=== PATIENT | female | born 1940 | race Caucasian/White ===

== ENCOUNTER → 2019-08-30 00:01 | Outpatient (RCR) | payer MEDICARE, SELFPAY | LOC: ONCMED 08-01 12:25 | PROVIDERS: Family Provider Physician Assistant; Visit Provider Internal Medicine Hematology & Oncology | DX: Z51.12 Encounter for antineoplastic immunotherapy (principal); Z51.11 Encounter for antineoplastic chemotherapy; C50.411 Malignant neoplasm of upper-outer quadrant of right female breast; E86.0 Dehydration; Z17.1 Estrogen receptor negative status [ER-]; Z79.899 Other long term (current) drug therapy; Z79.52 Long term (current) use of systemic steroids | CPT/HCPCS: 36415 ×3; 80053 ×5; 85025 ×5; 93306; 96367 ×4; 96413 ×4; 96417 ×4; 99214 ×4; J1100 ×4; J1642 ×4; J2469 ×4; J3490 ×4; J7030 ×4; J7040 ×4; J7050 ×9; J9045 ×4; J9267 ×4; J9306 ×2; J9355 ×2 ==

== ENCOUNTER 2019-09-29 05:35 | Outpatient (RCR) | payer MEDICARE, SELFPAY ==
[2019-09-01] MEDS: acetaminophen 325 mg Tablet 650 MG PO (09:21)
[2019-09-01] MEDS: diphenoxylate/atropine Tablet PO (10:26)
[2019-09-01] MEDS: palonosetron 0.25 mg/5 mL SDV IV (10:55)
--- NOTE | 2019-09-01 16:49 | ONC FU_ITS ---
[facility] Patient Note Patient: Odalys Arreaga Unit #: [id number]: 1940 Dictated By: Yoshi DianaDate of Visit: Sep 01, 2019 Onc MED Follow-Up/Prog Note Chief Complaint: Right breast cancer History of Present Illness: Mrs. Arreaga is a 79 -year-old female with 3-4 month history of progressive right breast mass. She underwent mammogram on 04/28/2019 which showed scattered fibroglandular densities bilaterally, larger right dense breast mass measuring 3.9 x 4.5 x 6.6 cm with associated fine pleomorphic calcification. This extended to the nearby skin surface upper outer right breast. Associated with skin thickening. Several nodular densities in the left breast along the posterior nipple line near 12:00 position. She underwent ultrasound-guided needle biopsy of right breast mass. The final pathology report shows infiltrating ductal carcinoma, grade 3, solid and cribriform growth pattern; ER/WV negative, HER-2/dunia +3+, Ki-67 57% unfavorable. And left breast biopsy showed fibroadenoma. Ms Arreaga denies any history of hormone intake. Patient has no family history of breast cancer. Menarche at age 17 and first child at age 27. CT PET scan done on 06/23/2019 showed marked increase of metabolic activity in the right breast mass with evidence of necrotic center and possible skin involvement; No evidence of axillary lymphadenopathy or distant metastatic disease. Echocardiogram done on 06/16/2019 showed ejection fraction 60-65%. Ms Arreaga was offered treatment with neoadjuvant chemotherapy per Dr Husain. She started on systemic chemotherapy with weekly carboplatin/Taxol and 3 weekly Herceptin/perjeta on 07/03/2019. She has tolerated it well thus far. Ms. Arreaga is here today for follow-up. This is cycle 3-day 8. She did have Perjeta Herceptin carboplatin and Taxol last week. She states overall she is doing well. However she has had significant diarrhea. She states she was up all night with the diarrhea . She states is been so numerous she could not count them. She states it was bad . She is not anything [id number] to stop the diarrhea. She states is worse this around than before. She denies any nausea or vomiting. She states her appetite is good. Energy is fair. She denies any shortness of breath orthopnea. She denies any lower extremity edema. She has had no neuropathy. She denies any constipation. She denies mouth sores, sore throat or difficulty swallowing. Other than the diarrhea she states she has not had any other concerns. Her ECOG is 2. 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 Family History: Ms. Arreaga's mother at age 76: congestive heart failure. Ms. Arreaga's father at age 71: type II diabetes. Ms. Arreaga's maternal grandmother at age 44: breast cancer. Social History: Ms. Arreaga is and she is retired. Ms. Arreaga has never smoked. She has no history of drinking. Ms. Arreaga reports the following support systems: lives with spouse, significant other, family, or friends, lives in own house, supportive family/friends willing to assist with needs, and adequate transportation available for expected visits. Her diet consists of regular meals. She indicates her activity level as: occasional exercise. Review Of Symptoms: Constitutional Denies fevers, chills, night sweats, excessive fatigue or weight loss. Allergic/Immunologic No reactions. Eyes Denies significant visual changes. No diplopia. No amaurosis. ENMT Denies changes in hearing, sore throat, mouth sores, difficulty or changes in swallowing ability, and/or sinus drainage. Endocrine No diabetes, thyroid disease or hormone replacement. Denies hot flashes or night sweats. Hematologic/Lymphatic Denies easy bruising or bleeding. The patient denies any tender or palpable lymph nodes. Respiratory Denies dyspnea on exertion, chest pain, cough or hemoptysis. Denies orthopnea. Cardiovascular Denies anginal chest pain, palpitations or orthopnea. Gastrointestinal Denies nausea, vomiting, GI bleeding, or constipation. Denies change in bowel habits and/or stool color, no heartburn or early satiety. Diarrhea as above. Genitourinary (F) No hematuria, hesitancy, incontinence, vaginal bleeding, discharge or other problems with urination. Musculoskeletal Denies joint pain, swelling or redness. No decreased range of motion. Integumentary Denies chronic rashes, inflammation, ulcerations or skin changes. Neurologic Denies headache, blurred vision, and no areas of focal weakness or numbness. Normal gait. No sensory problems. Psychiatric Denies insomnia, depression, evelia or mood swings. Vital Signs: Performed on Sep 01, 2019 08:16 Height - 60.00 in Weight - 139.0 lbs (LOW) BSA - 1.60 sq.m BMI - 27.15 Temperature - 97.3 F (LOW) Pulse - 85 /min Respiration - 20 /min BP - 149/80 mm(hg) (HIGH) O2 Sat - 98 % Pain - 0,2 - Ambulatory/capable of all self-care, unable to perform any work activities. Up and about more than 50% of waking hours. (ECOG) Physical Examination: Constitutional Alert, oriented, no acute distress. Skin pink, warm and dry. Head Normocephalic; atraumatic. Eyes Conjunctivae and sclerae are clear and without icterus. Pupils are reactive and equal. ENMT No oral exudates, ulcers, masses, thrush or mucositis. Oropharynx clear. Tongue normal. Neck Supple without masses or thyromegaly. No jugular venous distension. Hematologic/Lymphatic No petechiae or purpura. No tender or palpable lymph nodes in the cervical or supraclavicular areas. Respiratory Lungs are clear to auscultation without rhonchi or wheezing. Cardiovascular Regular rate and rhythm of heart without murmurs,clicks, gallops or rubs. Chest left subclavian venous access device site unremarkable. Abdomen Non-tender, non-distended, no masses or ascites. Good bowel sounds noted in all quads. No guarding or rebound tenderness. No pulsatile masses. Back/Spine Non-tender to palpation. Extremities No visible deformities, no cyanosis, clubbing or edema. Musculoskeletal No tenderness or swelling, normal range of motion without obvious weakness. Integumentary No rashes or lesions. Neurologic No sensory or motor deficits, normal cerebellar function, normal gait. Psychiatric Alert and oriented times three. Coherent speech. Verbalizes understanding of our discussions today. Laboratory:Test performed on Aug 30, 2019 08:18 Sodium 139 mmol/L Potassium 4.3 mmol/L Chloride 106 mmol/L CO2 23 mmol/L Anion Gap 14.3 BUN 16 mg/dL Creatinine 0.8 mg/dL Cr Clearance (Est) 55.3700 mL/min Glucose 121 mg/dl Calcium 9.3 mg/dL Protein, Total 6.1 g/dL Albumin 4.4 g/dL Globulin 1.7 gm/dL Bilirubin, Total 0.5 mg/dL ALT (SGPT) 29 U/L AST (SGOT) 26 U/L Alkaline Phosphatase 106 U/L WBC 5.4 10 3/uL RBC 3.90 10 6/uL HGB 11.4 g/dL HCT 34.5 % MCV 88.5 fl MCH 29.2 pg MCHC 33.0 g/dl RDW 13.8 % Platelet Count 235 10 3/cmm MPV 9.5 fl Neutrophils 3.8 10 3/uL Lymphocytes 1.3 10 3/uL Monocytes 0.2 10 3/uL Eosinophils 0.0 10 3/uL Basophils 0.0 10 3/uL Neutrophil % 70.1 % Lymphocyte % 24.1 % Monocyte % 4.5 % Eosinophil % 0.7 % Basophils % 0.4 % Test performed on Jul 12, 2019 08:25 CBC Slide Review SLIDE REVIEW PERFORM SLIDE REVIEW AGREES WITH AUTOMATED RESULTS ST Test performed on Jun 27, 2019 15:25 CA 15-3 7.6 U/mL CA 27.29 14.1 U/mL Impression: ER/[place] negative HER-2/dunia positive, infiltrating adenocarcinoma of the right breast per ultrasound-guided biopsy done on 05/23/2019 Mammogram done on 04/28/2019 showed 3.9 x 4.5 x 6.6 cm right breast mass Which showed ER/WV negative, HER-2/dunia +3+, Ki-67 57% unfavorable CT PET scan done on 06/23/2019 showed intense uptake in right breast with evidence of central necrosis and skin involvement but no right axillary lymphadenopathy or distant metastatic disease. Echocardiogram done on 06/16/2019 showed ejection fraction between 60-65%.Clinical stage IIIB, Tb (skin involvement), N0, M0, ER/[place] negative HER-2/dunia positive Left breast biopsy showed fibroadenoma Started on systemic therapy with weekly carboplatin/Taxol and 3 weekly Herceptin/perjeta on 07/12/2019. She presents today for cycle 3 day 8 Carboplatin/paclitaxel. She has had significant diarrhea since her last dose of Herceptin/Perjeta. She has not tried any OTC products. Plan: 1. Proceed with cycle 3-day 8 carboplatin paclitaxel. She is not due for Herceptin Perjeta for another 2 weeks. 2. Steroid compliance confirmed. 3. Imodium 2 tablets with next diarrhea and then 1 as needed after that. She has not tried any [id number] products at all. There are prn orders to have her use Imodium here in the office today if she has any diarrhea. 4. Labs from 08/30/2019 were reviewed in detail and discussed with Ms. Arreaga and a copy was given to her. WBC 5.4, hemoglobin 11.4, platelets are 35,000, ANC is 3800. Potassium 4.3 creatinine is 0.8 LFTs are normal. 5. She has an echocardiogram from 08/30/2019 which is pending. She is having no symptoms of CHF. She is not due for Herceptin Perjeta for another 2 weeks. 6. We will plan to see her back in 1 week with CBC CMP possibly the day before. 7. Ms. Arreaga was instructed to contact us in the interim should questions or problems arise. She is advised to contact us at the Imodium is not controlling her diarrhea. Signed By: Yoshi Diana-, AODENISSE Husain MD <<Signature on File>>
[2019-09-07 11:18] LABS: Basophils % 0.4 %; Eosinophils % 0.6 %; Hematocrit 32.7 % (37.0-47.0); Lymphocytes # 1.7 10^3/uL (0.8-4.8); Lymphocytes % 32.6 %; Mean Corpuscular HGB Conc 33.6 g/dL (30.0-36.0); Mean Corpuscular Hemoglobin 29.5 pg (28.0-34.0); Mean Corpuscular Volume 87.7 fL (81-99); Mean Platelet Volume 9.7 fL (7.4-10.4); Monocytes # 0.4 10^3/uL (0.2-0.9); Monocytes % 7.2 %; Neutrophils # 3.1 10^3/uL (1.8-7.7); Neutrophils % 58.6 %; Nucleated Red Blood Cells % 0 %; Platelet Count 189 10^3/cmm (130-400); Red Blood Count 3.73 10^6/uL (4.1-5.3); Red Cell Distribution Width 14.4 % (12.1-15.1); White Blood Count 5.3 10^3/uL (4.0-10.0)
[2019-09-07 11:23] LABS: Alanine Aminotransferase 29 U/L (0-33); Albumin Level 3.7 g/dL (3.5-5.2); Alkaline Phosphatase 116 IU/L (35-105); Anion Gap 13.5 (5-19); Aspartate Amino Transferase 26 U/L (0-32); Blood Urea Nitrogen 12 mg/dL (8-23); Calcium 9.5 mg/Dl (8.8-10.2); Carbon Dioxide 27 mmol/L (22-29); Chloride 104 mmol/L (98-107); Globulin 2.6 g/dL (1.3-4.6); Glucose 150 mg/dL (74-106); Potassium 3.5 mmol/L (3.5-5.1); Sodium 141 mmol/L (136-145); Total Bilirubin 0.4 mg/dL (0.15-1.2); Total Protein 6.3 g/dL (6.6-8.7)
--- NOTE | 2019-09-08 09:38 | ONC FU_ITS ---
[facility] Patient Note Patient: Odalys Arreaga Unit #: [id number]: 1940 Dictated By: Yoshi DianaDate of Visit: Sep 08, 2019 Onc MED Follow-Up/Prog Note Chief Complaint: Right breast cancer History of Present Illness: Mrs. Arreaga is a 79 -year-old female with 3-4 month history of progressive right breast mass. She underwent mammogram on 04/28/2019 which showed scattered fibroglandular densities bilaterally, larger right dense breast mass measuring 3.9 x 4.5 x 6.6 cm with associated fine pleomorphic calcification. This extended to the nearby skin surface upper outer right breast. Associated with skin thickening. Several nodular densities in the left breast along the posterior nipple line near 12:00 position. She underwent ultrasound-guided needle biopsy of right breast mass. The final pathology report shows infiltrating ductal carcinoma, grade 3, solid and cribriform growth pattern; ER/[place] negative, HER-2/dunia +3+, Ki-67 57% unfavorable. And left breast biopsy showed fibroadenoma. Ms Arreaga denies any history of hormone intake. Patient has no family history of breast cancer. Menarche at age 17 and first child at age 27. CT PET scan done on 06/23/2019 showed marked increase of metabolic activity in the right breast mass with evidence of necrotic center and possible skin involvement; No evidence of axillary lymphadenopathy or distant metastatic disease. Echocardiogram done on 06/16/2019 showed ejection fraction 60-65%. Ms Arreaga was offered treatment with neoadjuvant chemotherapy per Dr Husain. She started on systemic chemotherapy with weekly carboplatin/Taxol and 3 weekly Herceptin/perjeta on 07/03/2019. She has tolerated it well thus far. Ms. Arreaga is here today for follow-up. This is cycle 3- 15. She states her diarrhea has resolved. She has had 2 random falls since her visit last week. Left first fall was on Thursday and one was just yesterday. She states that she just had sudden onset weakness and just fell-. She denies any leg weakness prior to that but since the fall she has noticed that she is weaker in general-especially in her legs. She denies peripheral neuropathy. She is eating good and drinking good. She has had some intermittent headaches but thought that not because her blood pressure has been elevated off and on. She denies any vision changes. She has had no nausea. She denies any urinary symptoms. She said no lower extremity edema or shortness of breath. She denies any cough. She had no fever or chills or any signs of infection for at least the last 72 hours. Denies any pain currently. Her ECOG is 2. 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 Family History: Ms. Arreaga's mother at age 76: congestive heart failure. Ms. Arreaga's father at age 71: type II diabetes. Ms. Arreaga's maternal grandmother at age 44: breast cancer. Social History: Ms. Arreaga is and she is retired. Ms. Arreaga has never smoked. She has no history of drinking. Ms. Arreaga reports the following support systems: lives with spouse, significant other, family, or friends, lives in own house, supportive family/friends willing to assist with needs, and adequate transportation available for expected visits. Her diet consists of regular meals. She indicates her activity level as: occasional exercise. Review Of Symptoms: Constitutional Denies fevers, chills, night sweats, excessive fatigue or weight loss. He states she has fallen twice since she states she has no warning she does falls because she is weak. However she has had no apparent injury. Allergic/Immunologic No reactions. Eyes Denies significant visual changes. No diplopia. No amaurosis. ENMT Denies changes in hearing, sore throat, mouth sores, difficulty or changes in swallowing ability, and/or sinus drainage. Hematologic/Lymphatic Denies easy bruising or bleeding. The patient denies any tender or palpable lymph nodes. Respiratory Denies dyspnea on exertion, chest pain, cough or hemoptysis. Denies orthopnea. Cardiovascular Denies anginal chest pain, palpitations or orthopnea. Gastrointestinal Denies nausea, vomiting, GI bleeding, or constipation. Denies change in bowel habits and/or stool color, no heartburn or early satiety. Diarrhea is resolved at present. Genitourinary (F) No hematuria, hesitancy, incontinence, vaginal bleeding, discharge or other problems with urination. Musculoskeletal Denies joint pain, swelling or redness. No decreased range of motion. Integumentary Denies chronic rashes, inflammation, ulcerations or skin changes. Neurologic Denies blurred vision, and numbness. utilizing wheelchair today due to weakness. Psychiatric Denies insomnia, depression, evelia or mood swings. Vital Signs: Performed on Sep 08, 2019 08:52 Height - 60.00 in Weight - lbs Temperature - 97.3 F (LOW) Pulse - 71 /min Respiration - 22 /min BP - 185/68 mm(hg) (HIGH) O2 Sat - 98 % Pain - 0,2 - Ambulatory/capable of all self-care, unable to perform any work activities. Up and about more than 50% of waking hours. (ECOG) Physical Examination: Constitutional Alert, oriented, no acute distress. Skin pink, warm and dry. Head Normocephalic; atraumatic. Eyes Conjunctivae and sclerae are clear and without icterus. Pupils are reactive and equal. Neck Supple without masses or thyromegaly. No jugular venous distension. Hematologic/Lymphatic No petechiae or purpura. No tender or palpable lymph nodes in the cervical or supraclavicular areas. Respiratory Lungs are clear to auscultation without rhonchi or wheezing. Cardiovascular Regular rate and rhythm of heart without murmurs,clicks, gallops or rubs. Chest left subclavian venous access device site unremarkable. Abdomen Non-tender, non-distended, no masses or ascites. Good bowel sounds noted in all quads. No guarding or rebound tenderness. No pulsatile masses. Back/Spine Non-tender to palpation. Extremities No visible deformities, no cyanosis, clubbing or edema. Musculoskeletal No tenderness or swelling, normal range of motion with mild weakness in both legs. Integumentary No rashes or lesions. Psychiatric Alert and oriented times three. Coherent speech. Verbalizes understanding of our discussions today. Laboratory:Test performed on Sep 07, 2019 10:15 Glucose 150 mg/dL BUN 12 mg/dL Creatinine 0.8 mg/dL Cr Clearance (Est) 55.37 mL/min Sodium 141 mmol/L Potassium 3.5 mmol/L Chloride 104 mmol/L CO2 27 mmol/L Calcium 9.5 mg/dL Protein, Total 63 g/dL Albumin 3.7 g/dL Globulin 2.6 g/dL Bilirubin, Total 0.4 mg/dL Alkaline Phosphatase 116 IU/L AST (SGOT) 26 IU/L ALT (SGPT) 29 IU/L WBC 5.3 10^3/uL RBC 3.73 10^6/uL HGB 11.0 g/dL HCT 32.7 % MCV 87.7 fl MCH 29.5 pg MCHC 33.6 g/dL RDW 14.4 % Platelet Count 189 10^3/uL MPV 9.7 fl Neutrophils 3.1 10 3/uL Neutrophil % 58.6 % Lymphocyte % 32.6 % Monocyte % 0.4 % Basophils % 0.0 % Test performed on Jun 27, 2019 15:25 CA 15-3 7.6 U/mL CA 27.29 14.1 U/mL Impression: ER/TN negative HER-2/dunia positive, infiltrating adenocarcinoma of the right breast per ultrasound-guided biopsy done on 05/23/2019 Mammogram done on 04/28/2019 showed 3.9 x 4.5 x 6.6 cm right breast mass Which showed ER/TN negative, HER-2/dunia +3+, Ki-67 57% unfavorable CT PET scan done on 06/23/2019 showed intense uptake in right breast with evidence of central necrosis and skin involvement but no right axillary lymphadenopathy or distant metastatic disease. Echocardiogram done on 06/16/2019 showed ejection fraction between 60-65%.Clinical stage IIIB, Tb (skin involvement), N0, M0, ER/TN negative HER-2/dunia positive Left breast biopsy showed fibroadenoma Started on systemic therapy with weekly carboplatin/Taxol and 3 weekly Herceptin/perjeta on 07/12/2019. She presents today for cycle 3 day 8 Carboplatin/paclitaxel. She has had significant diarrhea since her last dose of Herceptin/Perjeta. She has not tried any OTC products. Ms. Arreaga presents today after having 2 random falls. She states she did not have any warning like dizziness or leg weakness prior to the falls but had sudden onset weakness and just fell. She had no apparent injury. But she states she feels weak overall. She is denying neuropathy states she is just weak. Plan: 1. We will hold cycle 3-day 15 carboplatin paclitaxel today due to recent falls and overall weakness. She will be due for the Herceptin Perjeta portion of this regimen next week. 2. Steroid compliance confirmed. 3. Reviewed instructions for Imodium 2 tablets with next diarrhea and then 1 as needed after that. Diarrhea is currently resolved. Requested an MRI of the head with and without contrast for evaluation of the sudden onset falls. She does states she is having some headaches off and on to she denies any vision changes and states her appetite is good but had no explanation for sudden onset weakness resulting in her falls. 4. Also will start lisinopril 5 mg 1 daily for hypertension. Her blood pressure is 185/68 today we will just monitor her closely. She has been on antihypertensive in the past and states she tolerated them well. I have advised her to stop the lisinopril that makes her feel any weaker or she has any other side effects from it. 5. Labs from September 07, 2019 reviewed in detail and discussed with Ms. Arreaga and a copy was given to her. WBC 5.3 hemoglobin 11 platelets 1 89,000 neutrophil count is 3100 potassium 3.5 glucose is 150 and LFTs are normal. 6. We will plan to see her back in 1 week with CBC CMP the day before her chemo is scheduled. 7. Ms. Arreaga was instructed to contact us in the interim should questions or problems arise. Signed By: Yoshi Diana-, AODENISSE Husain MD <<Signature on File>>
[2019-09-14 14:46] LABS: Basophils % 0.1 %; Eosinophils % 0.1 %; Hematocrit 34.5 % (37.0-47.0); Hemoglobin 11.2 g/dL (11.5-15.3); Lymphocytes # 0.6 10^3/uL (0.8-4.8); Lymphocytes % 7.5 %; Mean Corpuscular HGB Conc 32.5 g/dL (30.0-36.0); Mean Corpuscular Hemoglobin 30.3 pg (28.0-34.0); Mean Corpuscular Volume 93.2 fL (81-99); Mean Platelet Volume 9.7 fL (7.4-10.4); Monocytes # 0.1 10^3/uL (0.2-0.9); Monocytes % 0.8 %; Neutrophils # 7.6 10^3/uL (1.8-7.7); Neutrophils % 91.1 %; Nucleated Red Blood Cells % 0 %; Platelet Count 221 10^3/cmm (130-400); Red Cell Distribution Width 14.9 % (12.1-15.1); White Blood Count 8.4 10^3/uL (4.0-10.0)
[2019-09-14 15:11] LABS: Alanine Aminotransferase 27 U/L (0-33); Albumin Level 3.9 g/dL (3.5-5.2); Alkaline Phosphatase 134 IU/L (35-105); Anion Gap 17.3 (5-19); Aspartate Amino Transferase 24 U/L (0-32); Blood Urea Nitrogen 10 mg/dL (8-23); Calcium 9.1 mg/Dl (8.8-10.2); Carbon Dioxide 25 mmol/L (22-29); Chloride 101 mmol/L (98-107); Glucose 330 mg/dL (74-106); Potassium 4.3 mmol/L (3.5-5.1); Sodium 139 mmol/L (136-145); Total Bilirubin 0.4 mg/dL (0.15-1.2); Total Protein 6.9 g/dL (6.6-8.7)
--- NOTE | 2019-09-15 08:10 | MR_ITS ---
WS: [id number] MRI BRAIN WITH AND WITHOUT CONTRAST HISTORY: Malignant NEOPLASM OF BREAST COMPARISON: None available. TECHNIQUE: Multiplanar imaging performed through the brain with Prohance 13 ml's IV. No acute infarcts are seen. Cramer-white matter differentiation is well preserved. Extensive, patchy an d confluent periventricular white matter signal abnormality. No prior infarct. Small amount of increa sed signal within the jun bilaterally, RIGHT greater than LEFT. Mild bilateral cerebral atrophy. No susceptibility artifacts or prior lacunar infarcts. Ventricles and extra-axial spaces are normal. Clivus and pituitary gland are normal. Postcontrast images are negative for masses or vascular malformations. Dural venous sinuses are normal. Paranasal sinuses: Well aerated with no significant disease. Mastoid air cells: Normal. Calvarium and scalp: Normal. MR/MR head wo/w con [id number] IMPRESSION: 1. No evidence for metastatic disease to the brain. No enhancing masses. 2. Severe chronic microvascular ischemic disease and mild atrophy. 3. No acute infarct.
[2019-09-15] MEDS: sodium chloride 0.9% 250 ML 75 ML IV (10:53)
[2019-09-15] MEDS: acetaminophen 325 mg Tablet 650 MG PO (10:53)
--- NOTE | 2019-09-15 11:36 | ONC FU_ITS ---
Dr. Husain follow up note Patient: Odalys Arreaga Unit #: [id number]: 1940 Dicatated By: Andrés Husain M.D.Date of Visit:Sep 15, 2019 Onc Med Follow-up/Prog Note History of Present Illness: Mrs. Arreaga is a 79 -year-old female with 3-4 month history of progressive right breast mass. She underwent mammogram on 04/28/2019 which showed scattered fibroglandular densities bilaterally, larger right dense breast mass measuring 3.9 x 4.5 x 6.6 cm with associated fine pleomorphic calcification. This extended to the nearby skin surface upper outer right breast. Associated with skin thickening. Several nodular densities in the left breast along the posterior nipple line near 12:00 position. She underwent ultrasound-guided needle biopsy of right breast mass. The final pathology report shows infiltrating ductal carcinoma, grade 3, solid and cribriform growth pattern; ER/OR negative, HER-2/dunia +3+, Ki-67 57% unfavorable. And left breast biopsy showed fibroadenoma. Ms Arreaga denies any history of hormone intake. Patient has no family history of breast cancer. Menarche at age 17 and first child at age 27. CT PET scan done on 06/23/2019 showed marked increase of metabolic activity in the right breast mass with evidence of necrotic center and possible skin involvement; No evidence of axillary lymphadenopathy or distant metastatic disease. Echocardiogram done on 06/16/2019 showed ejection fraction 60-65%. Ms Arreaga was offered treatment with neoadjuvant chemotherapy She started on systemic chemotherapy with weekly carboplatin/Taxol and 3 weekly Herceptin/perjeta on 07/03/2019. She has tolerated it well thus far. h/o random falls , states that she just had sudden onset weakness and just fell-. She denies any leg weakness prior to that but since the fall she has noticed that she is weaker in general-especially in her legs. She denies peripheral neuropathy. Underwent MRI scan of brain to rule out brain metastases on 09/15/2019, which showed no evidence of metastatic disease to the brain no enhancing masses. Severe chronic microvascular ischemic disease. No acute changes .Follow-up echocardiogram done on 08/30/2019 showed normal left ventricle function ejection fraction 65-70% Came for follow-up, denies any specific complaint, patient said she feeling much better since she started on antihypertensive medicine. No more dizziness. No more fall, diarrhea has resolved, overall feeling much better and more energetic. She is also noncompliant with her diabetic diet. Patient said she used be on oral hypoglycemic but that has been discontinued long time back. And now she is having episode of hyperglycemia due to high-dose steroids used as premedication for chemotherapy. Medications: Aspirin Low Dose 81 (81 mg) Tablet Oral daily, Atorvastatin Calcium 20 (20 mg) Tablet Oral at bedtime, B-12 2,500 (2500 mcg) Tablet Oral daily, Centrum Silver Tablet, chewable Oral daily, Cholecalciferol 1,000 (1000 Units) Capsule Oral daily, Lisinopril 1 Tablet (of 10 mg) Oral daily, Oxybutynin Chloride 5 (5 mg) Tablet Oral b.i.d. Allergies: Penicillins Review of Systems: Review of Systems is not available for this patient. Vital Signs: Performed on Sep 15, 2019 10:11 Height - 60.00 in Weight - 144.8 lbs (HIGH) BSA - 1.63 sq.m BMI - 28.28 Temperature - 97.9 F (LOW) Pulse - 65 /min Respiration - 18 /min BP - 156/70 mm(hg) (HIGH) O2 Sat - 98 % Pain - 0 Performance Status: 1 - No physically strenuous activity, but ambulatory and able to carry out light or sedentary work (e.g. office work, light house work). (ECOG) Physical Examination: Respiratory - Lungs are clear to auscultation without rhonchi or wheezing, Cardiovascular - Regular rate and rhythm of heart, Extremities - no edema. Lab/Imaging: Test performed on Sep 14, 2019 12:00 Glucose 330 mg/dL BUN 10 mg/dL Creatinine 0.9 mg/dL Cr Clearance (Est) 49.22 mL/min Sodium 139 mmol/L Potassium 4.3 mmol/L Chloride 101 mmol/L CO2 25 mmol/L Calcium 9.1 mg/dL Protein, Total 6.9 g/dL Albumin 3.9 g/dL Globulin 3.0 g/dL Bilirubin, Total 0.4 mg/dL Alkaline Phosphatase 134 IU/L AST (SGOT) 24 IU/L ALT (SGPT) 27 IU/L WBC 8.4 10^9/L RBC 3.70 10^12/L HGB 11.2 g/dL HCT 34.5 % MCV 93.2 fl MCH 30.3 pg MCHC 32.5 g/dL RDW 14.9 % Platelet Count 221 10^9/L MPV 9.7 fL Neutrophils (Gran) 7.6 10^9/L Lymphocytes 0.6 10^9/L Monocytes 0.1 10^9/L Eosinophils 0.0 10^9/L Basophils 0.0 10^9/L Manual Lymphocytes 7.5 % Manual Monocytes 0.8 % Manual Eosinophils 0.1 % Manual Basophils 0.1 % NRBCs 0.0 /100 WBC Test performed on Sep 07, 2019 10:15 Neutrophil % 58.6 % Lymphocyte % 32.6 % Monocyte % 0.4 % Basophils % 0.0 % Test performed on Aug 30, 2019 08:18 Anion Gap 14.3 Eosinophil % 0.7 % Test performed on Jul 12, 2019 08:25 CBC Slide Review SLIDE REVIEW PERFORM SLIDE REVIEW AGREES WITH AUTOMATED RESULTS ST Test performed on Jun 27, 2019 15:25 CA 15-3 7.6 U/mL CA 27.29 14.1 U/mL Impression: ER/OR negative HER-2/dunia positive, infiltrating adenocarcinoma of the right breast per ultrasound-guided biopsy done on 05/23/2019 Mammogram done on 04/28/2019 showed 3.9 x 4.5 x 6.6 cm right breast mass Which showed ER/OR negative, HER-2/dunia +3+, Ki-67 57% unfavorable CT PET scan done on 06/23/2019 showed intense uptake in right breast with evidence of central necrosis and skin involvement but no right axillary lymphadenopathy or distant metastatic disease. Echocardiogram done on 06/16/2019 showed ejection fraction between 60-65%.Clinical stage IIIB, Tb (skin involvement), N0, M0, ER/OR negative HER-2/dunia positive Left breast biopsy showed fibroadenoma Started on systemic therapy with weekly carboplatin/Taxol and 3 weekly Herceptin/perjeta on 07/12/2019. She presents today for cycle 3 day 8 Carboplatin/paclitaxel. She has had significant diarrhea since her last dose of Herceptin/Perjeta. She has not tried any OTC products. Ms. Arreaga presents today after having 2 random falls. She states she did not have any warning like dizziness or leg weakness prior to the falls but had sudden onset weakness and just fell. She had no apparent injury. But she states she feels weak overall. She is denying neuropathy states she is just weak. Plan: Discussed with patient regarding her labs white blood count 8.4 hemoglobin 11.2 crit 34.5 platelets 222,000 CMP within normal limit except glucose 330 Clinically, patient is doing well, tolerating neoadjuvant chemotherapy with weekly carboplatin/Taxol and 3 weeks Herceptin/perjeta well but with expected side effects e.g. generalized weakness and fatigue which could be multifactorial including due to hyper glycemia. We'll proceed with the next cycle #4 of chemotherapy with weekly carboplatin/Taxol and review dose of Herceptin/perjeta. She will return to clinic in 1 week with CBC CMP if okay, for her weekly dose of carboplatin/Taxol Steroid-induced hyperglycemia. We will consider sliding scale and diabetes teaching. And patient was advised to avoid sugar day before and around chemotherapy to minimize steroid-induced hyperglycemia. Signed By: Andrés Husain M.D. <<Signature on File>>
[2019-09-22] MEDS: acetaminophen 325 mg Tablet 650 MG PO (10:05)
[2019-09-22] MEDS: sodium chloride 0.9% 250 ML IV (10:21)
[2019-09-28 17:09] LABS: Alanine Aminotransferase 21 U/L (0-33); Albumin Level 3.5 g/dL (3.5-5.2); Alkaline Phosphatase 118 IU/L (35-105); Anion Gap 18.3 (5-19); Aspartate Amino Transferase 24 U/L (0-32); Carbon Dioxide 24 mmol/L (22-29); Chloride 102 mmol/L (98-107); Globulin 3.4 g/dL (1.3-4.6); Glucose 145 mg/dL (74-106); Potassium 4.3 mmol/L (3.5-5.1); Sodium 140 mmol/L (136-145); Total Bilirubin 0.7 mg/dL (0.15-1.2); Total Protein 6.9 g/dL (6.6-8.7)
[2019-09-28 19:34] LABS: Basophils % 0.7 %; Eosinophils # 0.1 10^3/uL (0.0-0.8); Eosinophils % 1.6 %; Hematocrit 35.3 % (37.0-47.0); Hemoglobin 11.4 g/dL (11.5-15.3); Lymphocytes % 47.1 %; Mean Corpuscular HGB Conc 32.3 g/dL (30.0-36.0); Mean Corpuscular Hemoglobin 29.6 pg (28.0-34.0); Mean Corpuscular Volume 91.7 fL (81-99); Mean Platelet Volume 10.1 fL (7.4-10.4); Monocytes # 0.3 10^3/uL (0.2-0.9); Monocytes % 7.9 %; Neutrophils # 1.8 10^3/uL (1.8-7.7); Neutrophils % 42.5 %; Nucleated Red Blood Cells % 0 %; Platelet Count 270 10^3/cmm (130-400); Red Blood Count 3.85 10^6/uL (4.1-5.3); Red Cell Distribution Width 15.1 % (12.1-15.1); White Blood Count 4.3 10^3/uL (4.0-10.0)
[2019-09-28 20:35] LABS: Blood Urea Nitrogen 13 mg/dL (8-23)
[2019-09-29] MEDS: sodium chloride 0.9% 250 ML 75 ML IV (09:50)
[2019-09-29] MEDS: acetaminophen 325 mg Tablet 650 MG PO (10:10)
== END 2019-09-30 23:59 | disposition home or self-care (01) ==
LOC: ONCMED 05:35
PROVIDERS: Nurse Practitioner; Family Provider Physician Assistant; Visit Provider Internal Medicine Hematology & Oncology
DX: Z51.12 Encounter for antineoplastic immunotherapy (principal); Z51.11 Encounter for antineoplastic chemotherapy; C50.411 Malignant neoplasm of upper-outer quadrant of right female breast; I10 Essential (primary) hypertension; Z17.1 Estrogen receptor negative status [ER-]; Z79.82 Long term (current) use of aspirin; Z91.81 History of falling
CPT/HCPCS: 36415; 70553; 80053; 85025; 96367; 96413; 96417; 99214; A4222; A9579; J1100; J1200; J2469; J3490; J7030; J7040; J7050; J9045; J9267; J9306; J9355

== ENCOUNTER 2019-10-27 05:44 | Outpatient (RCR) | payer MEDICARE, SELFPAY ==
[2019-10-05 14:02] LABS: Hematocrit 33.6 % (37.0-47.0); Hemoglobin 11.2 g/dL (11.5-15.3); Lymphocytes # 0.7 10^3/uL (0.8-4.8); Lymphocytes % 16.1 %; Mean Corpuscular HGB Conc 33.3 g/dL (30.0-36.0); Mean Corpuscular Hemoglobin 31.1 pg (28.0-34.0); Mean Corpuscular Volume 93.3 fL (81-99); Mean Platelet Volume 9.6 fL (7.4-10.4); Monocytes % 0.7 %; Neutrophils # 3.7 10^3/uL (1.8-7.7); Neutrophils % 82.5 %; Nucleated Red Blood Cells % 0 %; Platelet Count 338 10^3/cmm (130-400); Red Cell Distribution Width 15.3 % (12.1-15.1); White Blood Count 4.5 10^3/uL (4.0-10.0)
[2019-10-05 15:19] LABS: Alanine Aminotransferase 22 U/L (0-33); Albumin Level 3.8 g/dL (3.5-5.2); Alkaline Phosphatase 127 IU/L (35-105); Aspartate Amino Transferase 23 U/L (0-32); Blood Urea Nitrogen 15 mg/dL (8-23); Calcium 9.9 mg/dL (8.5-10.5); Carbon Dioxide 24 mmol/L (22-29); Chloride 100 mmol/L (98-107); Globulin 2.7 g/dL (1.3-4.6); Glucose 220 mg/dL (65-115); Sodium 138 mmol/L (136-145); Total Bilirubin 0.5 mg/dL (0.15-1.2); Total Protein 6.5 g/dL (6.6-8.7)
--- NOTE | 2019-10-12 08:44 | US_ITS ---
WS: [id number] ULTRASOUND BREAST RIGHT TECHNIQUE: Ultrasound right breast focused area of concern. CLINICAL INFORMATION: RIGHT BREAST CANCER COMPARISON: Ultrasound May 23, 2019. Ultrasound April 28, 2019. Diagnostic mammogram March FINDINGS: Ultrasound right breast at the 10:00 position 3 cm from the nipple. Again seen is the large right sofia ast mass at the 10:00 position consistent with known infiltrating ductal carcinoma. Heterogeneous right breast mass measures approximately 3.2 x 4.2 x 1.8 cm today. This compares to 5.8 x 5.4 x 6.6 cm previously. Associated internal calcifications and cystic components are again seen. Normal sized lymph nodes in the right axilla. Largest lymph node measures 1.1 x 1.3 x 0.6 cm with nor mal fatty hilum. No definite pathologic lymph nodes. US/US breast RT limited* [id number] IMPRESSION: 1. Interval decrease in size of the heterogeneous right breast mass today vivienne uring 3.2 x 4.2 x 1.8 cm compared to 5.8 x 5.4 x 6.6 cm previously 2. Right axilla is also evaluated. No pathologic lymph nodes.
[2019-10-12 09:11] LABS: Hemoglobin 10.8 g/dL (11.5-15.3); Lymphocytes # 0.5 10^3/uL (0.8-4.8); Lymphocytes % 7.4 %; Mean Corpuscular HGB Conc 32.7 g/dL (30.0-36.0); Mean Corpuscular Hemoglobin 29.7 pg (28.0-34.0); Mean Corpuscular Volume 90.7 fL (81-99); Mean Platelet Volume 8.9 fL (7.4-10.4); Monocytes # 0.1 10^3/uL (0.2-0.9); Monocytes % 0.8 %; Neutrophils % 91.3 %; Nucleated Red Blood Cells % 0 %; Platelet Count 292 10^3/cmm (130-400); Red Blood Count 3.64 10^6/uL (4.1-5.3); Red Cell Distribution Width 15.5 % (12.1-15.1); White Blood Count 6.6 10^3/uL (4.0-10.0)
[2019-10-12 09:26] LABS: Alanine Aminotransferase 18 U/L (0-33); Albumin Level 3.8 g/dL (3.5-5.2); Alkaline Phosphatase 110 IU/L (35-105); Anion Gap 16.4 (5-19); Aspartate Amino Transferase 21 U/L (0-32); Blood Urea Nitrogen 15 mg/dL (8-23); Calcium 9.6 mg/dL (8.5-10.5); Carbon Dioxide 25 mmol/L (22-29); Chloride 102 mmol/L (98-107); Glucose 200 mg/dL (65-115); Potassium 4.4 mmol/L (3.5-5.1); Sodium 139 mmol/L (136-145); Total Bilirubin 0.4 mg/dL (0.15-1.2); Total Protein 6.8 g/dL (6.6-8.7)
[2019-10-13] MEDS: acetaminophen 325 mg Tablet 650 MG PO (09:25)
[2019-10-13] MEDS: sodium chloride 0.9% 250 ML 75 ML IV (10:00)
--- NOTE | 2019-10-13 13:44 | ONC FU_ITS ---
Dr. Husain follow up note Patient: Odalys Arreaga Unit #: [id number]: 1940 Dicatated By: Andrés Husain M.D.Date of Visit:Oct 13, 2019 Onc Med Follow-up/Prog Note History of Present Illness: Mrs. Arreaga is a 79 -year-old female with 3-4 month history of progressive right breast mass. She underwent mammogram on 04/28/2019 which showed scattered fibroglandular densities bilaterally, larger right dense breast mass measuring 3.9 x 4.5 x 6.6 cm with associated fine pleomorphic calcification. This extended to the nearby skin surface upper outer right breast. Associated with skin thickening. Several nodular densities in the left breast along the posterior nipple line near 12:00 position. She underwent ultrasound-guided needle biopsy of right breast mass. The final pathology report shows infiltrating ductal carcinoma, grade 3, solid and cribriform growth pattern; ER/DC negative, HER-2/dunia +3+, Ki-67 57% unfavorable. And left breast biopsy showed fibroadenoma. Ms Arreaga denies any history of hormone intake. Patient has no family history of breast cancer. Menarche at age 17 and first child at age 27. CT PET scan done on 06/23/2019 showed marked increase of metabolic activity in the right breast mass with evidence of necrotic center and possible skin involvement; No evidence of axillary lymphadenopathy or distant metastatic disease. Echocardiogram done on 06/16/2019 showed ejection fraction 60-65%. Ms Arreaga was offered treatment with neoadjuvant chemotherapy She started on systemic chemotherapy with weekly carboplatin/Taxol and 3 weekly Herceptin/perjeta on 07/03/2019. She has tolerated it well thus far. h/o random falls , states that she just had sudden onset weakness and just fell-. She denies any leg weakness prior to that but since the fall she has noticed that she is weaker in general-especially in her legs. She denies peripheral neuropathy. Underwent MRI scan of brain to rule out brain metastases on 09/15/2019, which showed no evidence of metastatic disease to the brain no enhancing masses. Severe chronic microvascular ischemic disease. No acute changes. Follow-up right breast sonogram done on 10/12/2019, after 4 cycles of systemic therapy with carboplatin/Taxol/Herceptin/perjeta showed excellent response, now right breast mass measures 3.2 x 4.2 x 1.8 cm compared to 5.8 x 5.4 x 6.6 cm previously, normal size lymph nodes in the right axilla. Came for follow-up, denies any specific complaints except off and on heartburn indigestion . Occasionally nausea but no vomiting, more often with certain foods especially thai fries or grapefruit juice. Patient was advised not to drink grapefruit juice or spicy food. No fever or chills no nausea or vomiting, no shortness of breath no lower extremity edema no palpitation, tolerating neoadjuvant systemic therapy well otherwise Medications: Aspirin Low Dose 81 (81 mg) Tablet Oral daily, Atorvastatin Calcium 20 (20 mg) Tablet Oral at bedtime, B-12 2,500 (2500 mcg) Tablet Oral daily, Centrum Silver Tablet, chewable Oral daily, Cholecalciferol 1,000 (1000 Units) Capsule Oral daily, Lisinopril 1 Tablet (of 10 mg) Oral daily, NovoLIN R (100 Units/mL) Injection Take as Directed, Oxybutynin Chloride 5 (5 mg) Tablet Oral b.i.d. Allergies: Penicillins Review of Systems: Constitutional - Appetite is good and weight is stable. No fever, chills, hot flashes, or night sweats. Energy is fair, ENMT - No sinus congestion/drainage. No mouth sores. No sore throat or difficulty swallowing, Hematologic/Lymphatic - No abnormal bruising or bleeding, Respiratory - No shortness of breath. No cough. No pleuritic pain or hemoptysis, Cardiovascular - No angina pain. No palpitations, Gastrointestinal - No nausea or vomiting. No heartburn or acid reflux. No diarrhea or constipation. No blood in the stool or black stools, Genitourinary (F) - No dysuria or hematuria. No urinary frequency. No urgency. Positive for incontinence, Musculoskeletal - No joint or bone pain, Neurologic - No headache or dizziness. No numbness/paresthesias or other focal neurologic symptoms, Psychiatric - No anxiety or depression. No insomnia. Vital Signs: Performed on Oct 13, 2019 08:47 Height - 60.00 in Weight - 141.4 lbs (HIGH) BSA - 1.61 sq.m BMI - 27.62 Temperature - 98.3 F (LOW) Pulse - 65 /min Respiration - 18 /min BP - 147/64 mm(hg) (HIGH) O2 Sat - 97 % Pain - 0 Performance Status: 0 - Fully active, able to carry on all predisease activities without restrictions. (ECOG) Physical Examination: Respiratory - Lungs are clear to auscultation without rhonchi or wheezing, Cardiovascular - Regular rate and rhythm of heart Extremities - no edema or rash. Lab/Imaging: Test performed on Oct 12, 2019 09:06 Sodium 139 mmol/L Potassium 4.4 mmol/L Chloride 102 mmol/L CO2 25 mmol/L Anion Gap 16.4 BUN 15 mg/dL Creatinine 0.9 mg/dL Cr Clearance (Est) 49.2200 mL/min Glucose 200 mg/dL Calcium 9.6 mg/dL Protein, Total 6.8 g/dL Albumin 3.8 g/dL Globulin 3.0 g/dL Bilirubin, Total 0.4 mg/dL ALT (SGPT) 18 U/L AST (SGOT) 21 U/L Alkaline Phosphatase 110 IU/L WBC 6.6 10 3/uL RBC 3.64 10 6/uL HGB 10.8 g/dL HCT 33.0 % MCV 90.7 fL MCH 29.7 pg MCHC 32.7 g/dL RDW 15.5 % Platelet Count 292 10 3/cmm MPV 8.9 fL Neutrophils 6.0 10 3/uL Lymphocytes 0.5 10 3/uL Monocytes 0.1 10 3/uL Eosinophils 0.0 10 3/uL Basophils 0.0 10 3/uL Neutrophil % 91.3 % Lymphocyte % 7.4 % Monocyte % 0.8 % Eosinophil % 0.0 % Basophils % 0.0 % Test performed on Sep 14, 2019 12:00 Manual Lymphocytes 7.5 % Manual Monocytes 0.8 % Manual Eosinophils 0.1 % Manual Basophils 0.1 % NRBCs 0.0 /100 WBC Test performed on Jul 12, 2019 08:25 CBC Slide Review SLIDE REVIEW PERFORM SLIDE REVIEW AGREES WITH AUTOMATED RESULTS ST Test performed on Jun 27, 2019 15:25 CA 15-3 7.6 U/mL CA 27.29 14.1 U/mL Impression: ER/DC negative HER-2/dunia positive, infiltrating adenocarcinoma of the right breast per ultrasound-guided biopsy done on 05/23/2019 Mammogram done on 04/28/2019 showed 3.9 x 4.5 x 6.6 cm right breast mass Which showed ER/DC negative, HER-2/dunia +3+, Ki-67 57% unfavorable CT PET scan done on 06/23/2019 showed intense uptake in right breast with evidence of central necrosis and skin involvement but no right axillary lymphadenopathy or distant metastatic disease. Echocardiogram done on 06/16/2019 showed ejection fraction between 60-65%.Clinical stage IIIB, Tb (skin involvement), N0, M0, ER/DC negative HER-2/dunia positive Left breast biopsy showed fibroadenoma Started on systemic therapy with weekly carboplatin/Taxol and 3 weekly Herceptin/perjeta on 07/12/2019.follow-up sonogram done after 4 cycles on 10/12/2019 showed excellent response with significant reduction in right breast mass, now measure 3.2 x 4.2 x 1.8 cm compared to 5.8 x 5.4 x 6.6 cm. Plan: Discussed with patient regarding her labs white blood count 6.6 alone 10.8 crit 33 platelets 292,000 CMP within normal limits except glucose 200, sonogram of right breast, showed excellent response to neoadjuvant therapy with significant reduction in size of right breast mass Clinically, patient doing well, tolerating neoadjuvant therapy with carboplatin/Taxol/Herceptin/perjeta well but with expected side effects. We'll proceed with cycle #5 today and then she will return to clinic in 1 week for weekly dose of carboplatin/Taxol. Patient is pleased with right breast sonogram findings which showed excellent response with significant reduction in size of right breast mass and no right axillary lymph node enlargement. We'll continue with her neoadjuvant chemotherapy and completed 6 cycles, followed by right breast sonogram to assess response and then surgery,. Next Patient was advised to watch her diet and avoid sugar and carbohydrate rich diet and follow with PMD and avoid grapefruit juice and spicy food. Signed By: Andrés Husain M.D. <<Signature on File>>
[2019-10-19 13:53] LABS: Basophils % 0.3 %; Hematocrit 32.1 % (37.0-47.0); Hemoglobin 10.6 g/dL (11.5-15.3); Lymphocytes # 0.6 10^3/uL (0.8-4.8); Lymphocytes % 9.1 %; Mean Corpuscular Hemoglobin 29.7 pg (28.0-34.0); Mean Corpuscular Volume 89.9 fL (81-99); Mean Platelet Volume 9.8 fL (7.4-10.4); Monocytes % 0.4 %; Neutrophils # 6.2 10^3/uL (1.8-7.7); Neutrophils % 88.4 %; Nucleated Red Blood Cells % 0 %; Platelet Count 301 10^3/cmm (130-400); Red Blood Count 3.57 10^6/uL (4.1-5.3)
[2019-10-19 14:01] LABS: Alanine Aminotransferase 25 U/L (0-33); Albumin Level 3.5 g/dL (3.5-5.2); Alkaline Phosphatase 94 IU/L (35-105); Anion Gap 18.3 (5-19); Aspartate Amino Transferase 23 U/L (0-32); Blood Urea Nitrogen 19 mg/dL (8-23); Calcium 9.5 mg/dL (8.5-10.5); Carbon Dioxide 22 mmol/L (22-29); Chloride 104 mmol/L (98-107); Globulin 3.3 g/dL (1.3-4.6); Glucose 171 mg/dL (65-115); Potassium 4.3 mmol/L (3.5-5.1); Sodium 140 mmol/L (136-145); Total Bilirubin 0.5 mg/dL (0.15-1.2); Total Protein 6.8 g/dL (6.6-8.7)
[2019-10-19 15:13] LABS: Slide Review Slide Review Perform
--- NOTE | 2019-10-23 20:22 | ONC FU_ITS ---
[facility] Patient Note Patient: Odalys Arreaga Unit #: [id number]: 1940 Dictated By: Yoshi DianaDate of Visit: Oct 20, 2019 Onc MED Follow-Up/Prog Note Chief Complaint: Right breast cancer History of Present Illness: Mrs. Arreaga is a 79 -year-old female with 3-4 month history of progressive right breast mass. She underwent mammogram on 04/28/2019 which showed scattered fibroglandular densities bilaterally, larger right dense breast mass measuring 3.9 x 4.5 x 6.6 cm with associated fine pleomorphic calcification. This extended to the nearby skin surface upper outer right breast. Associated with skin thickening. Several nodular densities in the left breast along the posterior nipple line near 12:00 position. She underwent ultrasound-guided needle biopsy of right breast mass. The final pathology report shows infiltrating ductal carcinoma, grade 3, solid and cribriform growth pattern; ER/AL negative, HER-2/dunia +3+, Ki-67 57% unfavorable. And left breast biopsy showed fibroadenoma. Ms Arreaga denies any history of hormone intake. Patient has no family history of breast cancer. Menarche at age 17 and first child at age 27. PET/CT on 06/23/2019 showed marked increase of metabolic activity in the right breast mass with evidence of necrotic center and possible skin involvement; No evidence of axillary lymphadenopathy or distant metastatic disease. Echocardiogram done on 06/16/2019 showed ejection fraction 60-65%. Ms Arreaga was offered treatment with neoadjuvant chemotherapy She started on systemic chemotherapy with weekly carboplatin/Taxol and 3 week Herceptin/perjeta on 07/03/2019. She has tolerated it well thus far. Ms Arreaga stated she was having random falls and states that she just had sudden onset weakness and just fell-. She denies any leg weakness prior to that but since the fall she has noticed that she is weaker in general-especially in her legs. She denies peripheral neuropathy. Underwent MRI scan of brain to rule out brain metastases on 09/15/2019, which showed no evidence of metastatic disease to the brain no enhancing masses. Severe chronic microvascular ischemic disease. No acute changes. Follow-up right breast sonogram done on 10/12/2019, after 4 cycles of systemic therapy with carboplatin/Taxol/Herceptin/perjeta showed excellent response, now right breast mass measures 3.2 x 4.2 x 1.8 cm compared to 5.8 x 5.4 x 6.6 cm previously, normal size lymph nodes in the right axilla. The plan is to complete 6 cycles and re ultrasound and refer for possible surgery. She has tolerated the chemo well overall but has had diarrhea. She is not a good historian today, but states her diarrhea was better this last week, but she had diarrhea last night. She states it is resolved this morning. I am uncertain if she is using the antidiarrheal as she could. She states she is using it some, but cannot tell me how often or how many. She denies any fever or chills. She states she has not had nausea. She denies any worsening neuropathy symptoms. She denies pain. She state she feels good today. She has no new concerns. Her ECOG is 1. 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 Family History: Ms. Arreaga's mother at age 76: congestive heart failure. Ms. Arreaga's father at age 71: type II diabetes. Ms. Arreaga's maternal grandmother at age 44: breast cancer. Social History: Ms. Arreaga is and she is retired. Ms. Arreaga has never smoked. She has no history of drinking. Ms. Arreaga reports the following support systems: lives with spouse, significant other, family, or friends, lives in own house, supportive family/friends willing to assist with needs, and adequate transportation available for expected visits. Her diet consists of regular meals. She indicates her activity level as: occasional exercise. Review Of Symptoms: Constitutional Denies fevers, chills, night sweats, excessive fatigue or weight loss. He states she has fallen twice since she states she has no warning she does falls because she is weak. However she has had no apparent injury. Allergic/Immunologic No reactions. Eyes Denies significant visual changes. No diplopia. No amaurosis. ENMT Denies changes in hearing, sore throat, mouth sores, difficulty or changes in swallowing ability, and/or sinus drainage. Endocrine No diabetes, thyroid disease or hormone replacement. Denies hot flashes or night sweats. Hematologic/Lymphatic Denies easy bruising or bleeding. The patient denies any tender or palpable lymph nodes. Respiratory Denies dyspnea on exertion, chest pain, cough or hemoptysis. Denies orthopnea. Cardiovascular Denies anginal chest pain, palpitations or orthopnea. Gastrointestinal Denies nausea, vomiting, GI bleeding, or constipation. Denies change in bowel habits and/or stool color, no heartburn or early satiety. Diarrhea is resolved at present. She states she thinks it was some better after her last treatment. I am not convinced she is taking the antidiarrheals as directed, which may be why she is still having intermittent diarrhea with the chemo. She has not had any diarrhea today or for the last 3 days that she can recall. Genitourinary (F) No hematuria, hesitancy, incontinence, vaginal bleeding, discharge or other problems with urination. Musculoskeletal Denies joint pain, swelling or redness. No decreased range of motion. Integumentary Denies chronic rashes, inflammation, ulcerations or skin changes. Neurologic Denies blurred vision, and numbness. Ambulatory without any assistance. Psychiatric Denies insomnia, depression, evelia or mood swings. Vital Signs: Performed on Oct 20, 2019 12:35 Height - 60.00 in Temperature - 97 F (LOW) Pulse - 63 /min Respiration - 18 /min BP - 177/65 mm(hg) (HIGH) O2 Sat - 98 % Pain - 0 Fatigue - 0 Performed on Oct 20, 2019 08:39 Height - 60.00 in Weight - 134.8 lbs (LOW) BSA - 1.58 sq.m BMI - 26.33 Temperature - 97.9 F (LOW) Pulse - 68 /min Respiration - 14 /min BP - 144/60 mm(hg) (HIGH) O2 Sat - 100 % Pain - 0 Fatigue - 0,1 - No physically strenuous activity, but ambulatory and able to carry out light or sedentary work (e.g. office work, light house work). (ECOG) Physical Examination: Constitutional Alert, oriented, no acute distress. Skin pink, warm and dry. Head Normocephalic; atraumatic. Eyes Conjunctivae and sclerae are clear and without icterus. Pupils are reactive and equal. ENMT No oral exudates, ulcers, masses, thrush or mucositis. Oropharynx clear. Tongue normal. Neck Supple without masses or thyromegaly. No jugular venous distension. Hematologic/Lymphatic No petechiae or purpura. No tender or palpable lymph nodes in the cervical or supraclavicular areas. Respiratory Lungs are clear to auscultation without rhonchi or wheezing. Cardiovascular Regular rate and rhythm of heart without murmurs,clicks, gallops or rubs. Chest left subclavian venous access device site unremarkable. Abdomen Non-tender, non-distended, no masses or ascites. Good bowel sounds noted in all quads. No guarding or rebound tenderness. No pulsatile masses. Back/Spine Non-tender to palpation. Extremities No visible deformities, no cyanosis, clubbing or edema. Musculoskeletal No tenderness or swelling, normal range of motion with mild weakness in both legs. Integumentary No rashes or lesions. Neurologic No sensory or motor deficits, normal cerebellar function, normal gait. Psychiatric Alert and oriented times three. Coherent speech. Verbalizes understanding of our discussions today. Laboratory:Test performed on Oct 19, 2019 11:25 Sodium 140 mmol/L Potassium 4.3 mmol/L Chloride 104 mmol/L CO2 22 mmol/L Anion Gap 18.3 BUN 19 mg/dL Creatinine 0.7 mg/dL Cr Clearance (Est) 63.2800 mL/min Glucose 171 mg/dL Calcium 9.5 mg/dL Protein, Total 6.8 g/dL Albumin 3.5 g/dL Globulin 3.3 g/dL Bilirubin, Total 0.5 mg/dL ALT (SGPT) 25 U/L AST (SGOT) 23 U/L Alkaline Phosphatase 94 IU/L WBC 7.0 10 3/uL RBC 3.57 10 6/uL HGB 10.6 g/dL HCT 32.1 % MCV 89.9 fL MCH 29.7 pg MCHC 33.0 g/dL RDW 15.0 % Platelet Count 301 10 3/cmm MPV 9.8 fL Neutrophils 6.2 10 3/uL Lymphocytes 0.6 10 3/uL Monocytes 0.0 10 3/uL Eosinophils 0.0 10 3/uL Basophils 0.0 10 3/uL Neutrophil % 88.4 % Lymphocyte % 9.1 % Monocyte % 0.4 % Eosinophil % 0.0 % Basophils % 0.3 % CBC Slide Review Slide Review Perform Test performed on Jun 27, 2019 15:25 CA 15-3 7.6 U/mL CA 27.29 14.1 U/mL Impression: ER/AL negative HER-2/dunia positive, infiltrating adenocarcinoma of the right breast per ultrasound-guided biopsy done on 05/23/2019 Mammogram done on 04/28/2019 showed 3.9 x 4.5 x 6.6 cm right breast mass Which showed ER/AL negative, HER-2/dunia +3+, Ki-67 57% unfavorable CT PET scan done on 06/23/2019 showed intense uptake in right breast with evidence of central necrosis and skin involvement but no right axillary lymphadenopathy or distant metastatic disease. Echocardiogram done on 06/16/2019 showed ejection fraction between 60-65%.Clinical stage IIIB, Tb (skin involvement), N0, M0, ER/AL negative HER-2/dunia positive Left breast biopsy showed fibroadenoma Ms Arreaga started on systemic therapy with weekly carboplatin/Taxol and 3 weekly Herceptin/perjeta on 07/12/2019. She has had significant diarrhea with the Herceptin/Perjeta. It is controlled when she takes antidiarrheal. Ms. Arreaga presented for followup after having 2 random falls. She stated she did not have any warning like dizziness or leg weakness prior to the falls but had sudden onset weakness and just fell. She had no apparent injury. But she stated she felt weak overall. She denied neuropathy. A MRI of the brain was done and did not show any brain mets. She has continued with chemotherapy. She did have followup breast ultrasound on 10/12/2019 which did show response. The current plan is to finish 6 cycles of chemotherapy and repeat the breast ultrasound and possible surgery. Plan: 1. Continue with her neoadjuvant chemotherapy and plan to complete 6 cycles (today is cycle 5 day 8), followed by right breast sonogram to assess response and then surgery. 2. Labs from October 19, 2019 were reviewed in detail discussed with Ms. Arreaga and a copy was given to her. WBC 7.0, hemoglobin 10.6, platelets 3 and 1000, ANC is 6200. Creatinine 0.7 random glucose was 171 LFTs are normal. 3. She was encouraged to use the Lomotil as needed for diarrhea. 4. We will plan to see her back in 1 week with CBC, CMP. She will be due for cycle 5-day 15 carboplatin/Taxol only. 5. Ms. Arreaga instructed to contact us in interim should questions or problems arise. I have encouraged her to call if she has any problems with diarrhea so that she does not have to worry about being hospitalized for uncontrolled diarrhea leading to dehydration. Signed By: Yoshi Diana-, AOP Andrés Husain MD <<Signature on File>>
[2019-10-26 12:04] LABS: Basophils % 0.4 %; Hematocrit 33.1 % (37.0-47.0); Lymphocytes # 0.5 10^3/uL (0.8-4.8); Lymphocytes % 9.5 %; Mean Corpuscular HGB Conc 33.2 g/dL (30.0-36.0); Mean Corpuscular Hemoglobin 31.3 pg (28.0-34.0); Mean Platelet Volume 10.3 fL (7.4-10.4); Monocytes % 0.6 %; Neutrophils # 4.5 10^3/uL (1.8-7.7); Neutrophils % 89.1 %; Nucleated Red Blood Cells % 0 %; Platelet Count 307 10^3/cmm (130-400); Red Blood Count 3.52 10^6/uL (4.1-5.3); Red Cell Distribution Width 15.8 % (12.1-15.1)
[2019-10-26 12:32] LABS: Alanine Aminotransferase 21 U/L (0-33); Albumin Level 3.6 g/dL (3.5-5.2); Alkaline Phosphatase 83 IU/L (35-105); Aspartate Amino Transferase 19 U/L (0-32); Blood Urea Nitrogen 23 mg/dL (8-23); Calcium 9.5 mg/dL (8.5-10.5); Carbon Dioxide 20 mmol/L (22-29); Chloride 107 mmol/L (98-107); Globulin 3.1 g/dL (1.3-4.6); Glucose 201 mg/dL (65-115); Sodium 139 mmol/L (136-145); Total Bilirubin 0.8 mg/dL (0.15-1.2); Total Protein 6.7 g/dL (6.6-8.7)
[2019-10-27] MEDS: acetaminophen 325 mg Tablet 650 MG PO (08:55)
[2019-10-27] MEDS: sodium chloride 0.9% 250 ML 75 ML IV (08:55)
--- NOTE | 2019-10-27 09:43 | ONC FU_ITS ---
Dr. Husain follow up note Patient: Odalys Arreaga Unit #: [id number]: 1940 Dicatated By: Andrés Husain M.D.Date of Visit:Oct 27, 2019 Onc Med Follow-up/Prog Note History of Present Illness: Mrs. Arreaga is a 79 -year-old female with 3-4 month history of progressive right breast mass. She underwent mammogram on 04/28/2019 which showed scattered fibroglandular densities bilaterally, larger right dense breast mass measuring 3.9 x 4.5 x 6.6 cm with associated fine pleomorphic calcification. This extended to the nearby skin surface upper outer right breast. Associated with skin thickening. Several nodular densities in the left breast along the posterior nipple line near 12:00 position. She underwent ultrasound-guided needle biopsy of right breast mass. The final pathology report shows infiltrating ductal carcinoma, grade 3, solid and cribriform growth pattern; ER/NE negative, HER-2/dunia +3+, Ki-67 57% unfavorable. And left breast biopsy showed fibroadenoma. Ms Arreaga denies any history of hormone intake. Patient has no family history of breast cancer. Menarche at age 17 and first child at age 27. PET/CT on 06/23/2019 showed marked increase of metabolic activity in the right breast mass with evidence of necrotic center and possible skin involvement; No evidence of axillary lymphadenopathy or distant metastatic disease. Echocardiogram done on 06/16/2019 showed ejection fraction 60-65%. Ms Arreaga was offered treatment with neoadjuvant chemotherapy She started on systemic chemotherapy with weekly carboplatin/Taxol and 3 week Herceptin/perjeta on 07/03/2019. She has tolerated it well thus far. Ms Arreaga stated she was having random falls and states that she just had sudden onset weakness and just fell-. She denies any leg weakness prior to that but since the fall she has noticed that she is weaker in general-especially in her legs. She denies peripheral neuropathy. Underwent MRI scan of brain to rule out brain metastases on 09/15/2019, which showed no evidence of metastatic disease to the brain no enhancing masses. Severe chronic microvascular ischemic disease. No acute changes. Follow-up right breast sonogram done on 10/12/2019, after 4 cycles of systemic therapy with carboplatin/Taxol/Herceptin/perjeta showed excellent response, now right breast mass measures 3.2 x 4.2 x 1.8 cm compared to 5.8 x 5.4 x 6.6 cm previously, normal size lymph nodes in the right axilla. The plan is to complete 6 cycles and re ultrasound and refer for possible surgery. Came for follow-up, denies any specific complaints, no nausea vomiting no fever no chills, tolerating systemic neoadjuvant chemotherapy well.No shortness of breath no palpitation no lower extremity edema. Medications: Aspirin Low Dose 81 (81 mg) Tablet Oral daily, Atorvastatin Calcium 20 (20 mg) Tablet Oral at bedtime, B-12 2,500 (2500 mcg) Tablet Oral daily, Centrum Silver Tablet, chewable Oral daily, Cholecalciferol 1,000 (1000 Units) Capsule Oral daily, Lisinopril 1 Tablet (of 10 mg) Oral daily, NovoLIN R (100 Units/mL) Injection Take as Directed, Oxybutynin Chloride 5 (5 mg) Tablet Oral b.i.d. Allergies: Penicillins Review of Systems: Review of Systems is not available for this patient. Vital Signs: Performed on Oct 27, 2019 08:13 Height - 60.00 in Weight - 136.8 lbs (HIGH) BSA - 1.59 sq.m BMI - 26.72 Temperature - 97.5 F (LOW) Pulse - 71 /min Respiration - 18 /min BP - 155/69 mm(hg) (HIGH) O2 Sat - 100 % Pain - 0 Performance Status: 0 - Fully active, able to carry on all predisease activities without restrictions. (ECOG) Physical Examination: Respiratory - Lungs are clear to auscultation without rhonchi or wheezing, Cardiovascular - Regular rate and rhythm of heart, Extremities - no edema. Lab/Imaging: Test performed on Oct 26, 2019 09:35 Sodium 139 mmol/L Potassium 4.0 mmol/L Chloride 107 mmol/L CO2 20 mmol/L Anion Gap 16.0 BUN 23 mg/dL Creatinine 0.9 mg/dL Cr Clearance (Est) 49.2200 mL/min Glucose 201 mg/dL Calcium 9.5 mg/dL Protein, Total 6.7 g/dL Albumin 3.6 g/dL Globulin 3.1 g/dL Bilirubin, Total 0.8 mg/dL ALT (SGPT) 21 U/L AST (SGOT) 19 U/L Alkaline Phosphatase 83 IU/L WBC 5.0 10 3/uL RBC 3.52 10 6/uL HGB 11.0 g/dL HCT 33.1 % MCV 94.0 fL MCH 31.3 pg MCHC 33.2 g/dL RDW 15.8 % Platelet Count 307 10 3/cmm MPV 10.3 fL Neutrophils 4.5 10 3/uL Lymphocytes 0.5 10 3/uL Monocytes 0.0 10 3/uL Eosinophils 0.0 10 3/uL Basophils 0.0 10 3/uL Neutrophil % 89.1 % Lymphocyte % 9.5 % Monocyte % 0.6 % Eosinophil % 0.0 % Basophils % 0.4 % Test performed on Oct 19, 2019 11:25 CBC Slide Review Slide Review Perform Test performed on Sep 14, 2019 12:00 Manual Lymphocytes 7.5 % Manual Monocytes 0.8 % Manual Eosinophils 0.1 % Manual Basophils 0.1 % NRBCs 0.0 /100 WBC Test performed on Jun 27, 2019 15:25 CA 15-3 7.6 U/mL CA 27.29 14.1 U/mL Impression: ER/NE negative HER-2/dunia positive, infiltrating adenocarcinoma of the right breast per ultrasound-guided biopsy done on 05/23/2019 Mammogram done on 04/28/2019 showed 3.9 x 4.5 x 6.6 cm right breast mass Which showed ER/NE negative, HER-2/dunia +3+, Ki-67 57% unfavorable CT PET scan done on 06/23/2019 showed intense uptake in right breast with evidence of central necrosis and skin involvement but no right axillary lymphadenopathy or distant metastatic disease. Echocardiogram done on 06/16/2019 showed ejection fraction between 60-65%.Clinical stage IIIB, Tb (skin involvement), N0, M0, ER/NE negative HER-2/dunia positive Left breast biopsy showed fibroadenoma Ms Arreaga started on systemic therapy with weekly carboplatin/Taxol and 3 weekly Herceptin/perjeta on 07/12/2019. She has had significant diarrhea with the Herceptin/Perjeta. It is controlled when she takes antidiarrheal. Ms. Arreaga presented for followup after having 2 random falls. She stated she did not have any warning like dizziness or leg weakness prior to the falls but had sudden onset weakness and just fell. She had no apparent injury. But she stated she felt weak overall. She denied neuropathy. A MRI of the brain was done and did not show any brain mets. She has continued with chemotherapy. She did have followup breast ultrasound on 10/12/2019 which did show response. The current plan is to finish 6 cycles of chemotherapy and repeat the breast ultrasound and possible surgery. Plan: Discussed with patient regarding her labs white blood count 5 hemoglobin 11 crit 33.1 platelets 307,000 CMP within normal limit except glucose 201 Clinically, patient is doing well, tolerating neoadjuvant chemotherapy with carboplatin/Taxol/perjeta/Herceptin well and today she is due for day 15 of carboplatin/Taxol and then return to clinic in 2 weeks with CBC CMP if okay, for cycle #6 Signed By: Andrés Husain M.D. <<Signature on File>>
== END 2019-10-29 23:59 | disposition home or self-care (01) ==
LOC: ONCMED 05:44
PROVIDERS: Family Provider Physician Assistant; Visit Provider Internal Medicine Hematology & Oncology
DX: Z51.12 Encounter for antineoplastic immunotherapy (principal); Z51.11 Encounter for antineoplastic chemotherapy; C50.411 Malignant neoplasm of upper-outer quadrant of right female breast; I10 Essential (primary) hypertension; Z17.1 Estrogen receptor negative status [ER-]; Z79.82 Long term (current) use of aspirin; Z91.81 History of falling
CPT/HCPCS: 36415; 76642; 80053; 85025; 96367; 96413; 96417; 99214; G0463; J1100; J1200; J2469; J3490; J7030; J7040; J7050; J9045; J9267; J9306; J9355

== ENCOUNTER 2019-11-23 05:40 | Outpatient (RCR) | payer MEDICARE, MEDICAID, SELFPAY ==
[2019-11-09 17:07] LABS: Basophils % 0.3 %; Eosinophils # 0.1 10^3/uL (0.0-0.8); Eosinophils % 1.1 %; Hematocrit 30.8 % (37.0-47.0); Hemoglobin 9.9 g/dL (11.5-15.3); Lymphocytes # 1.9 10^3/uL (0.8-4.8); Lymphocytes % 23.5 %; Mean Corpuscular HGB Conc 32.1 g/dL (30.0-36.0); Mean Corpuscular Hemoglobin 31.1 pg (28.0-34.0); Mean Corpuscular Volume 96.9 fL (81-99); Mean Platelet Volume 9.7 fL (7.4-10.4); Monocytes % 12.5 %; Neutrophils # 4.9 10^3/uL (1.8-7.7); Nucleated Red Blood Cells % 0 %; Platelet Count 203 10^3/cmm (130-400); Red Blood Count 3.18 10^6/uL (4.1-5.3); Red Cell Distribution Width 15.9 % (12.1-15.1)
[2019-11-09 17:12] LABS: Alanine Aminotransferase 17 U/L (0-33); Albumin Level 3.1 g/dL (3.5-5.2); Alkaline Phosphatase 86 IU/L (35-105); Anion Gap 12.8 (5-19); Aspartate Amino Transferase 18 U/L (0-32); Blood Urea Nitrogen 14 mg/dL (8-23); Calcium 8.7 mg/dL (8.5-10.5); Carbon Dioxide 27 mmol/L (22-29); Chloride 108 mmol/L (98-107); Globulin 2.4 g/dL (1.3-4.6); Glucose 74 mg/dL (65-115); Osmolality Calculated 293 mOsm/kg (285-295); Potassium 3.8 mmol/L (3.5-5.1); Sodium 144 mmol/L (136-145); Total Bilirubin 0.4 mg/dL (0.15-1.2); Total Protein 5.5 g/dL (6.6-8.7)
[2019-11-10] MEDS: alteplase 1 mg/mL SDV 2 mL 2 MG INTRACATH (10:55)
[2019-11-10] MEDS: sodium chloride 0.9% 250 ML 75 ML IV (11:04)
[2019-11-10] MEDS: acetaminophen 325 mg Tablet 650 MG PO (11:04)
[2019-11-10] MEDS: FUROsemide 10 mg/mL SDV 2mL 20 MG IVP (15:12)
--- NOTE | 2019-11-13 15:33 | ONC FU_ITS ---
[facility] Patient Note Patient: Odalys Arreaga Unit #: [id number]: [id number] Dictated By: Yoshi DianaDate of Visit: Nov 10, 2019 Onc MED Follow-Up/Prog Note Chief Complaint: Right breast cancer History of Present Illness: Mrs. Arreaga is a 79 -year-old female with 3-4 month history of progressive right breast mass. She underwent mammogram on 04/28/2019 which showed scattered fibroglandular densities bilaterally, larger right dense breast mass measuring 3.9 x 4.5 x 6.6 cm with associated fine pleomorphic calcification. This extended to the nearby skin surface upper outer right breast. Associated with skin thickening. Several nodular densities in the left breast along the posterior nipple line near 12:00 position. She underwent ultrasound-guided needle biopsy of right breast mass. The final pathology report shows infiltrating ductal carcinoma, grade 3, solid and cribriform growth pattern; ER/HI negative, HER-2/dunia +3+, Ki-67 57% unfavorable. And left breast biopsy showed fibroadenoma. Ms Arreaga denies any history of hormone intake. Patient has no family history of breast cancer. Menarche at age 17 and first child at age 27. PET/CT on 06/23/2019 showed marked increase of metabolic activity in the right breast mass with evidence of necrotic center and possible skin involvement; No evidence of axillary lymphadenopathy or distant metastatic disease. Echocardiogram done on 06/16/2019 showed ejection fraction 60-65%. Ms Arreaga was offered treatment with neoadjuvant chemotherapy She started on systemic chemotherapy with weekly carboplatin/Taxol and 3 week Herceptin/perjeta on 07/03/2019. She has tolerated it well thus far. Ms Arreaga stated she was having random falls and states that she just had sudden onset weakness and just fell-. She denies any leg weakness prior to that but since the fall she has noticed that she is weaker in general-especially in her legs. She denies peripheral neuropathy. Underwent MRI scan of brain to rule out brain metastases on 09/15/2019, which showed no evidence of metastatic disease to the brain no enhancing masses. Severe chronic microvascular ischemic disease. No acute changes. Follow-up right breast sonogram done on 10/12/2019, after 4 cycles of systemic therapy with carboplatin/Taxol/Herceptin/perjeta showed excellent response, now right breast mass measures 3.2 x 4.2 x 1.8 cm compared to 5.8 x 5.4 x 6.6 cm previously, normal size lymph nodes in the right axilla. The plan is to complete 6 cycles and re ultrasound and refer for possible surgery. Ms. Arreaga is here today for follow-up. She states overall she is doing good. She has reported a couple falls in the shower over the last week or so. She states she just slips and goes down. She is denies any syncope or palpitations. She is had no TIA type symptoms. She states that she is eating good. She is states that she is drinking water and fluids good as well to. She states she is sleeping well. She has no specific complaints today other than lower extremity edema which she states is causing her feet to her. She states the swelling is in her ankles and sometimes right above the ankles that makes her feet feel really tight and is hard to wear shoes. She denies any orthopnea. She denies any chest pain. She has had no palpitations. She is little short of breath with exertion but no more than her normal. She denies any nausea or vomiting. She has had no fever or chills. She denies any diarrhea or constipation. She states the diarrhea was better after the last cycle because she did take the Imodium. Her ECOG is 2. 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 Family History: Ms. Arreaga's mother at age 76: congestive heart failure. Ms. Arreaga's father at age 71: type II diabetes. Ms. Arreaga's maternal grandmother at age 44: breast cancer. Social History: Ms. Arreaga is and she is retired. Ms. Arreaga has never smoked. She has no history of drinking. Ms. Arreaga reports the following support systems: lives with spouse, significant other, family, or friends, lives in own house, supportive family/friends willing to assist with needs, and adequate transportation available for expected visits. Her diet consists of regular meals. She indicates her activity level as: occasional exercise. Review Of Symptoms: Constitutional Denies fevers, chills, night sweats, excessive fatigue or weight loss. She has fallen twice-once after getting out of the shower and another time, she is unsure what happen. However she has had no apparent injury. Allergic/Immunologic No reactions. Eyes Denies significant visual changes. No diplopia. No amaurosis. ENMT Denies changes in hearing, sore throat, mouth sores, difficulty or changes in swallowing ability, and/or sinus drainage. Hematologic/Lymphatic Denies easy bruising or bleeding. The patient denies any tender or palpable lymph nodes. Respiratory Denies dyspnea on exertion, chest pain, cough or hemoptysis. Denies orthopnea. Cardiovascular Denies anginal chest pain, palpitations or orthopnea. She states she has has some swelling in her feet off and on. Gastrointestinal Denies nausea, vomiting, GI bleeding, or constipation. Denies change in bowel habits and/or stool color, no heartburn or early satiety. Diarrhea is resolved at present. She states she thinks it was some better after her last treatment. She indicates she is taking the Imodium more regular now. Genitourinary (F) No hematuria, hesitancy, incontinence, vaginal bleeding, discharge or other problems with urination. Musculoskeletal Denies joint pain, swelling or redness. No decreased range of motion. Integumentary Denies chronic rashes, inflammation, ulcerations or skin changes. Neurologic Denies blurred vision, and numbness. Ambulatory with cane. Psychiatric Denies insomnia, depression, evelia or mood swings. Vital Signs: Performed on Nov 10, 2019 10:14 Height - 60.00 in Weight - 134.8 lbs (LOW) BSA - 1.58 sq.m BMI - 26.33 Temperature - 97.9 F (LOW) Pulse - 76 /min Respiration - 17 /min BP - 138/62 mm(hg) O2 Sat - 97 % Pain - 0,2 - Ambulatory/capable of all self-care, unable to perform any work activities. Up and about more than 50% of waking hours. (ECOG) Physical Examination: Constitutional Alert, oriented, no acute distress. Skin pink, warm and dry. Head Normocephalic; atraumatic. Eyes Conjunctivae and sclerae are clear and without icterus. Pupils are reactive and equal. ENMT No oral exudates, ulcers, masses, thrush or mucositis. Oropharynx clear. Tongue normal. Neck Supple without masses or thyromegaly. No jugular venous distension. Hematologic/Lymphatic No petechiae or purpura. No tender or palpable lymph nodes in the cervical or supraclavicular areas. Respiratory Lungs are clear to auscultation without rhonchi or wheezing. Cardiovascular Regular rate and rhythm of heart without murmurs,clicks, gallops or rubs. Chest left subclavian venous access device site unremarkable. Abdomen Non-tender, non-distended, no masses or ascites. Good bowel sounds noted in all quads. No guarding or rebound tenderness. No pulsatile masses. Back/Spine Non-tender to palpation. Extremities No visible deformities, no cyanosis, clubbing. She does have 1-2+ bilateral ankle edema. Musculoskeletal No tenderness or swelling, normal range of motion with mild weakness in both legs. Integumentary No rashes or lesions. Neurologic No sensory or motor deficits, normal cerebellar function, normal gait. Psychiatric Alert and oriented times three. Coherent speech. Verbalizes understanding of our discussions today. Laboratory:Test performed on Nov 09, 2019 10:20 Creatinine 0.9 mg/dL Cr Clearance (Est) 49.22 mL/min Test performed on Oct 26, 2019 09:35 Sodium 139 mmol/L Potassium 4.0 mmol/L Chloride 107 mmol/L CO2 20 mmol/L Anion Gap 16.0 BUN 23 mg/dL Glucose 201 mg/dL Calcium 9.5 mg/dL Protein, Total 6.7 g/dL Albumin 3.6 g/dL Globulin 3.1 g/dL Bilirubin, Total 0.8 mg/dL ALT (SGPT) 21 U/L AST (SGOT) 19 U/L Alkaline Phosphatase 83 IU/L WBC 5.0 10 3/uL RBC 3.52 10 6/uL HGB 11.0 g/dL HCT 33.1 % MCV 94.0 fL MCH 31.3 pg MCHC 33.2 g/dL RDW 15.8 % Platelet Count 307 10 3/cmm MPV 10.3 fL Neutrophils 4.5 10 3/uL Lymphocytes 0.5 10 3/uL Monocytes 0.0 10 3/uL Eosinophils 0.0 10 3/uL Basophils 0.0 10 3/uL Neutrophil % 89.1 % Lymphocyte % 9.5 % Monocyte % 0.6 % Eosinophil % 0.0 % Basophils % 0.4 % Impression: ER/HI negative HER-2/dunia positive, infiltrating adenocarcinoma of the right breast per ultrasound-guided biopsy done on 05/23/2019 Mammogram done on 04/28/2019 showed 3.9 x 4.5 x 6.6 cm right breast mass Which showed ER/HI negative, HER-2/dunia +3+, Ki-67 57% unfavorable CT PET scan done on 06/23/2019 showed intense uptake in right breast with evidence of central necrosis and skin involvement but no right axillary lymphadenopathy or distant metastatic disease. Echocardiogram done on 06/16/2019 showed ejection fraction between 60-65%.Clinical stage IIIB, Tb (skin involvement), N0, M0, ER/HI negative HER-2/dunia positive Left breast biopsy showed fibroadenoma Ms Arreaga started on systemic therapy with weekly carboplatin/Taxol and 3 weekly Herceptin/perjeta on 07/12/2019. She has had significant diarrhea with the Herceptin/Perjeta. It is controlled when she takes antidiarrheal. Ms. Arreaga presented for followup after having 2 random falls. She stated she did not have any warning like dizziness or leg weakness prior to the falls but had sudden onset weakness and just fell. She had no apparent injury. But she stated she felt weak overall. She denied neuropathy. A MRI of the brain was done and did not show any brain mets. She has continued with chemotherapy. She did have followup breast ultrasound on 10/12/2019 which did show response. The current plan is to finish 6 cycles of chemotherapy and repeat the breast ultrasound and possible surgery. Plan: 1. proceed with cycle 6 day 1 chemotherapy today. 2. Continue same antiemetics. 3. Labs from November 09, 2019 were reviewed and discussed with Ms. Arreaga in detail. WBC 8.0, hemoglobin 9.9, platelets 203,000 ANC is 4900 creatinine is 0.9 LFTs are normal potassium was 3.8. 4. She wanted something for her swelling. I advised her that we can try furosemide 20 mg but only every other day as she Abilio has a risk of falling. She was advised that if this makes her dehydrated or weaker her falls may increase. She verbalized understanding but states that the swelling in her feet are so bothersome and tight that it makes her feet hurt. We will try Lasix 20 mg every other day and if she has no swelling she states she will not take it even on the every other day schedule. 5. Plan to have her return in 1 week with CBC CMP for cycle 6-day 8 carboplatin paclitaxel Perjeta trastuzumab. 6. Mrs. Arreaga was instructed to contact us in the interim should questions or problems arise. Signed By: Yoshi Diana-, [facility] Andrés Husain MD <<Signature on File>>
[2019-11-15 15:00] LABS: Alanine Aminotransferase 26 U/L (0-33); Albumin Level 3.3 g/dL (3.5-5.2); Alkaline Phosphatase 98 IU/L (35-105); Anion Gap 13.9 (5-19); Aspartate Amino Transferase 30 U/L (0-32); Blood Urea Nitrogen 14 mg/dL (8-23); Calcium 9.3 mg/dL (8.5-10.5); Carbon Dioxide 29 mmol/L (22-29); Chloride 102 mmol/L (98-107); Globulin 2.9 g/dL (1.3-4.6); Glucose 285 mg/dL (65-115); Osmolality Calculated 297 mOsm/kg (285-295); Potassium 4.9 mmol/L (3.5-5.1); Sodium 140 mmol/L (136-145); Total Bilirubin 0.4 mg/dL (0.15-1.2); Total Protein 6.2 g/dL (6.6-8.7)
[2019-11-15 15:06] LABS: Basophils % 0.2 %; Hematocrit 32.1 % (37.0-47.0); Hemoglobin 10.4 g/dL (11.5-15.3); Lymphocytes # 0.4 10^3/uL (0.8-4.8); Lymphocytes % 7.4 %; Mean Corpuscular HGB Conc 32.4 g/dL (30.0-36.0); Mean Corpuscular Hemoglobin 30.9 pg (28.0-34.0); Mean Corpuscular Volume 95.3 fL (81-99); Mean Platelet Volume 10.2 fL (7.4-10.4); Monocytes % 0.2 %; Neutrophils # 5.2 10^3/uL (1.8-7.7); Neutrophils % 91.8 %; Nucleated Red Blood Cells % 0 %; Platelet Count 244 10^3/cmm (130-400); Red Blood Count 3.37 10^6/uL (4.1-5.3); Red Cell Distribution Width 15.6 % (12.1-15.1); White Blood Count 5.7 10^3/uL (4.0-10.0)
[2019-11-15 15:57] LABS: Slide Review Slide Review Perform
[2019-11-16] MEDS: sodium chloride 0.9% 250 ML 75 ML IV (09:00)
[2019-11-16] MEDS: acetaminophen 325 mg Tablet 650 MG PO (09:40)
--- NOTE | 2019-11-16 17:29 | ONC FU_ITS ---
Dr. Husain follow up note Patient: Odalys Arreaga Unit #: [id number]: 1940 Dicatated By: Andrés Husain M.D.Date of Visit:Nov 16, 2019 Onc Med Follow-up/Prog Note History of Present Illness: Mrs. Arreaga is a 79 -year-old female with 3-4 month history of progressive right breast mass. She underwent mammogram on 04/28/2019 which showed scattered fibroglandular densities bilaterally, larger right dense breast mass measuring 3.9 x 4.5 x 6.6 cm with associated fine pleomorphic calcification. This extended to the nearby skin surface upper outer right breast. Associated with skin thickening. Several nodular densities in the left breast along the posterior nipple line near 12:00 position. She underwent ultrasound-guided needle biopsy of right breast mass. The final pathology report shows infiltrating ductal carcinoma, grade 3, solid and cribriform growth pattern; ER/SD negative, HER-2/dunia +3+, Ki-67 57% unfavorable. And left breast biopsy showed fibroadenoma. Ms Arreaga denies any history of hormone intake. Patient has no family history of breast cancer. Menarche at age 17 and first child at age 27. PET/CT on 06/23/2019 showed marked increase of metabolic activity in the right breast mass with evidence of necrotic center and possible skin involvement; No evidence of axillary lymphadenopathy or distant metastatic disease. Echocardiogram done on 06/16/2019 showed ejection fraction 60-65%. Ms Arreaga was offered treatment with neoadjuvant chemotherapy She started on systemic chemotherapy with weekly carboplatin/Taxol and 3 week Herceptin/perjeta on 07/03/2019. She has tolerated it well thus far. Ms Arreaga stated she was having random falls and states that she just had sudden onset weakness and just fell-. She denies any leg weakness prior to that but since the fall she has noticed that she is weaker in general-especially in her legs. She denies peripheral neuropathy. Underwent MRI scan of brain to rule out brain metastases on 09/15/2019, which showed no evidence of metastatic disease to the brain no enhancing masses. Severe chronic microvascular ischemic disease. No acute changes. Follow-up right breast sonogram done on 10/12/2019, after 4 cycles of systemic therapy with carboplatin/Taxol/Herceptin/perjeta showed excellent response, now right breast mass measures 3.2 x 4.2 x 1.8 cm compared to 5.8 x 5.4 x 6.6 cm previously, normal size lymph nodes in the right axilla. The plan is to complete 6 cycles and re ultrasound and refer for possible surgery. She states overall she is doing good. She has reported a couple falls in the shower over the last week or so. She states she just slips and goes down. She is denies any syncope or palpitations. She is had no TIA type symptoms. came for follow-up,Complaining of generalized weakness and fatigue but having problem with walking stick and requesting walker. Otherwise no fever or chills, no nausea or vomiting, no diarrhea constipation, no peripheral numbness. No lower extremity edema. No palpitation or shortness of breath. Medications: Aspirin Low Dose 81 (81 mg) Tablet Oral daily, Atorvastatin Calcium 20 (20 mg) Tablet Oral at bedtime, B-12 2,500 (2500 mcg) Tablet Oral daily, Centrum Silver Tablet, chewable Oral daily, Cholecalciferol 1,000 (1000 Units) Capsule Oral daily, Furosemide 1 Tablet (of 20 mg) Oral q 2 days, Lisinopril 1 Tablet (of 10 mg) Oral daily, NovoLIN R (100 Units/mL) Injection Take as Directed, Oxybutynin Chloride 5 (5 mg) Tablet Oral b.i.d. Allergies: Penicillins Review of Systems: Constitutional - Appetite is good and weight is stable. No fever, chills, hot flashes, or night sweats. Energy is fair, ENMT - No sinus congestion/drainage. No mouth sores. No sore throat or difficulty swallowing, Hematologic/Lymphatic - No abnormal bruising or bleeding, Respiratory - No shortness of breath. No cough. No pleuritic pain or hemoptysis, Cardiovascular - No angina pain. No palpitations, Gastrointestinal - No nausea or vomiting. No heartburn or acid reflux. No diarrhea or constipation. No blood in the stool or black stools, Genitourinary (F) - No dysuria or hematuria. No urinary frequency. No urgency. Positive for incontinence, Musculoskeletal - No joint or bone pain, Neurologic - No headache or dizziness. No numbness/paresthesias or other focal neurologic symptoms, Psychiatric - No anxiety or depression. No insomnia. Vital Signs: Performed on Nov 16, 2019 12:00 Height - 60.00 in Temperature - 97.7 F (LOW) Pulse - 56 /min (LOW) Respiration - 18 /min BP - 136/65 mm(hg) O2 Sat - 96 % Pain - 0 Fatigue - 0 Performed on Nov 16, 2019 08:11 Height - 60.00 in Weight - 136.8 lbs (HIGH) BSA - 1.59 sq.m BMI - 26.72 Temperature - 98.1 F (LOW) Pulse - 63 /min Respiration - 18 /min BP - 144/61 mm(hg) (HIGH) O2 Sat - 98 % Pain - 0 Performance Status: 1 - No physically strenuous activity, but ambulatory and able to carry out light or sedentary work (e.g. office work, light house work). (ECOG) Physical Examination: Respiratory - Lungs are clear to auscultation without rhonchi or wheezing, Cardiovascular - Regular rate and rhythm of heart, Extremities - no edema ,no focal weakness. Lab/Imaging: Test performed on Nov 15, 2019 07:05 Sodium 140 mmol/L Potassium 4.9 mmol/L Chloride 102 mmol/L CO2 29 mmol/L Anion Gap 13.9 BUN 14 mg/dL Creatinine 0.6 mg/dL Cr Clearance (Est) 73.8300 mL/min Glucose 285 mg/dL Calcium 9.3 mg/dL Protein, Total 6.2 g/dL Albumin 3.3 g/dL Globulin 2.9 g/dL Bilirubin, Total 0.4 mg/dL ALT (SGPT) 26 U/L AST (SGOT) 30 U/L Alkaline Phosphatase 98 IU/L WBC 5.7 10 3/uL RBC 3.37 10 6/uL HGB 10.4 g/dL HCT 32.1 % MCV 95.3 fL MCH 30.9 pg MCHC 32.4 g/dL RDW 15.6 % Platelet Count 244 10 3/cmm MPV 10.2 fL Neutrophils 5.2 10 3/uL Lymphocytes 0.4 10 3/uL Monocytes 0.0 10 3/uL Eosinophils 0.0 10 3/uL Basophils 0.0 10 3/uL Neutrophil % 91.8 % Lymphocyte % 7.4 % Monocyte % 0.2 % Eosinophil % 0.0 % Basophils % 0.2 % CBC Slide Review Slide Review Perform Test performed on Sep 14, 2019 12:00 Manual Lymphocytes 7.5 % Manual Monocytes 0.8 % Manual Eosinophils 0.1 % Manual Basophils 0.1 % NRBCs 0.0 /100 WBC Test performed on Jun 27, 2019 15:25 CA 15-3 7.6 U/mL CA 27.29 14.1 U/mL Impression: ER/SD negative HER-2/dunia positive, infiltrating adenocarcinoma of the right breast per ultrasound-guided biopsy done on 05/23/2019 Mammogram done on 04/28/2019 showed 3.9 x 4.5 x 6.6 cm right breast mass Which showed ER/SD negative, HER-2/dunia +3+, Ki-67 57% unfavorable CT PET scan done on 06/23/2019 showed intense uptake in right breast with evidence of central necrosis and skin involvement but no right axillary lymphadenopathy or distant metastatic disease. Echocardiogram done on 06/16/2019 showed ejection fraction between 60-65%.Clinical stage IIIB, Tb (skin involvement), N0, M0, ER/SD negative HER-2/dunia positive Left breast biopsy showed fibroadenoma Ms Arreaga started on systemic therapy with weekly carboplatin/Taxol and 3 weekly Herceptin/perjeta on 07/12/2019. She has had significant diarrhea with the Herceptin/Perjeta. It is controlled when she takes antidiarrheal. Ms. Arreaga presented for followup after having 2 random falls. She stated she did not have any warning like dizziness or leg weakness prior to the falls but had sudden onset weakness and just fell. She had no apparent injury. But she stated she felt weak overall. She denied neuropathy. A MRI of the brain was done and did not show any brain mets. She has continued with chemotherapy. She did have followup breast ultrasound on 10/12/2019 which did show response. The current plan is to finish 6 cycles of chemotherapy and repeat the breast ultrasound and possible surgery. Plan: Discussed with patient regarding her labs white blood count 5.7 globin 10.4 crit 32.1 platelets 244,000 CMP within normal limits except glucose 285 Clinically, patient is doing well, tolerating neoadjuvant chemotherapy well but with expected side effects. E.g. generalized weakness and fatigue. We'll proceed with next dose of chemotherapy with weekly carboplatin/Taxol today and then she will return to clinic in 1 week to complete her neoadjuvant chemotherapy followed by surgical evaluation. As far as generalized weakness and fatigue is concern probably multifactorial including due to chemotherapy and patient is having difficulty with walking stick so we will consider standard walker which will help her navigate around with better balance. Return to clinic in 1 week with CBC CMP and if looks reasonable, to conclude her neoadjuvant chemotherapy. Signed By: Andrés Husain M.D. <<Signature on File>>
[2019-11-22 17:50] LABS: Alanine Aminotransferase 19 U/L (0-33); Albumin Level 3.3 g/dL (3.5-5.2); Alkaline Phosphatase 67 IU/L (35-105); Anion Gap 16.4 (5-19); Aspartate Amino Transferase 21 U/L (0-32); Blood Urea Nitrogen 15 mg/dL (8-23); Calcium 9.2 mg/dL (8.5-10.5); Carbon Dioxide 27 mmol/L (22-29); Chloride 101 mmol/L (98-107); Globulin 1.9 g/dL (1.3-4.6); Glucose 177 mg/dL (65-115); Osmolality Calculated 291 mOsm/kg (285-295); Potassium 4.4 mmol/L (3.5-5.1); Sodium 140 mmol/L (136-145); Total Bilirubin 0.8 mg/dL (0.15-1.2); Total Protein 5.2 g/dL (6.6-8.7)
[2019-11-22 18:01] LABS: Basophils % 0.6 %; Eosinophils # 0.1 10^3/uL (0.0-0.8); Eosinophils % 1.2 %; Hematocrit 28.8 % (37.0-47.0); Hemoglobin 9.1 g/dL (11.5-15.3); Lymphocytes # 1.8 10^3/uL (0.8-4.8); Mean Corpuscular HGB Conc 31.6 g/dL (30.0-36.0); Mean Corpuscular Hemoglobin 30.5 pg (28.0-34.0); Mean Corpuscular Volume 96.6 fL (81-99); Mean Platelet Volume 10.5 fL (7.4-10.4); Monocytes # 0.5 10^3/uL (0.2-0.9); Monocytes % 7.2 %; Neutrophils # 4.4 10^3/uL (1.8-7.7); Neutrophils % 64.3 %; Nucleated Red Blood Cells % 0 %; Platelet Count 227 10^3/cmm (130-400); Red Blood Count 2.98 10^6/uL (4.1-5.3); Red Cell Distribution Width 15.8 % (12.1-15.1); White Blood Count 6.8 10^3/uL (4.0-10.0)
[2019-11-23] MEDS: acetaminophen 325 mg Tablet 650 MG PO (10:10)
[2019-11-23] MEDS: sodium chloride 0.9% 250 ML 75 ML IV (10:26)
[2019-11-23] MEDS: dextrose 50% syringe 50 mL IVP (14:45)
--- NOTE | 2019-11-25 09:25 | ONC FU_ITS ---
Dr. Husain follow up note Patient: Odalys Arreaga Unit #: [id number]: 1940 Dicatated By: Andrés Husain M.D.Date of Visit:Nov 23, 2019 Onc Med Follow-up/Prog Note History of Present Illness: Mrs. Arreaga is a 79 -year-old female with 3-4 month history of progressive right breast mass. She underwent mammogram on 04/28/2019 which showed scattered fibroglandular densities bilaterally, larger right dense breast mass measuring 3.9 x 4.5 x 6.6 cm with associated fine pleomorphic calcification. This extended to the nearby skin surface upper outer right breast. Associated with skin thickening. Several nodular densities in the left breast along the posterior nipple line near 12:00 position. She underwent ultrasound-guided needle biopsy of right breast mass. The final pathology report shows infiltrating ductal carcinoma, grade 3, solid and cribriform growth pattern; ER/VT negative, HER-2/dunia +3+, Ki-67 57% unfavorable. And left breast biopsy showed fibroadenoma. Ms Arreaga denies any history of hormone intake. Patient has no family history of breast cancer. Menarche at age 17 and first child at age 27. PET/CT on 06/23/2019 showed marked increase of metabolic activity in the right breast mass with evidence of necrotic center and possible skin involvement; No evidence of axillary lymphadenopathy or distant metastatic disease. Echocardiogram done on 06/16/2019 showed ejection fraction 60-65%. Ms Arreaga was offered treatment with neoadjuvant chemotherapy She started on systemic chemotherapy with weekly carboplatin/Taxol and 3 week Herceptin/perjeta on 07/03/2019. She has tolerated it well thus far. Ms Arreaga stated she was having random falls and states that she just had sudden onset weakness and just fell-. She denies any leg weakness prior to that but since the fall she has noticed that she is weaker in general-especially in her legs. She denies peripheral neuropathy. Underwent MRI scan of brain to rule out brain metastases on 09/15/2019, which showed no evidence of metastatic disease to the brain no enhancing masses. Severe chronic microvascular ischemic disease. No acute changes. Follow-up right breast sonogram done on 10/12/2019, after 4 cycles of systemic therapy with carboplatin/Taxol/Herceptin/perjeta showed excellent response, now right breast mass measures 3.2 x 4.2 x 1.8 cm compared to 5.8 x 5.4 x 6.6 cm previously, normal size lymph nodes in the right axilla. The plan is to complete 6 cycles and re ultrasound and refer for possible surgery. She states overall she is doing good. She has reported a couple falls in the shower over the last week or so. She states she just slips and goes down. She is denies any syncope or palpitations. She is had no TIA type symptoms. Came for follow-up, denies any specific complaints, no fever or chills, no nausea or vomiting but generalized weakness and fatigue no peripheral numbness. Otherwise tolerating systemic therapy well Medications: Aspirin Low Dose 81 (81 mg) Tablet Oral daily, Atorvastatin Calcium 20 (20 mg) Tablet Oral at bedtime, B-12 2,500 (2500 mcg) Tablet Oral daily, Centrum Silver Tablet, chewable Oral daily, Cholecalciferol 1,000 (1000 Units) Capsule Oral daily, Furosemide 1 Tablet (of 20 mg) Oral q 2 days, Lisinopril 1 Tablet (of 10 mg) Oral daily, NovoLIN R (100 Units/mL) Injection Take as Directed, Oxybutynin Chloride 5 (5 mg) Tablet Oral b.i.d. Allergies: Penicillins Review of Systems: Review of Systems is not available for this patient. Vital Signs: Performed on Nov 23, 2019 08:59 Height - 60.00 in Weight - 135.0 lbs (LOW) BSA - 1.58 sq.m BMI - 26.37 Temperature - 97.9 F (LOW) Pulse - 64 /min Respiration - 22 /min BP - 123/50 mm(hg) O2 Sat - 100 % Pain - 0 Performance Status: 1 - No physically strenuous activity, but ambulatory and able to carry out light or sedentary work (e.g. office work, light house work). (ECOG) Physical Examination: Respiratory - Lungs are clear to auscultation without rhonchi or wheezing, Cardiovascular - Regular rate and rhythm of heart, Extremities - 1+ edema bilaterally. Lab/Imaging: Test performed on Nov 22, 2019 13:50 Sodium 140 mmol/L Potassium 4.4 mmol/L Chloride 101 mmol/L CO2 27 mmol/L Anion Gap 16.4 BUN 15 mg/dL Creatinine 0.8 mg/dL Cr Clearance (Est) 55.3700 mL/min Glucose 177 mg/dL Calcium 9.2 mg/dL Protein, Total 5.2 g/dL Albumin 3.3 g/dL Globulin 1.9 g/dL Bilirubin, Total 0.8 mg/dL ALT (SGPT) 19 U/L AST (SGOT) 21 U/L Alkaline Phosphatase 67 IU/L WBC 6.8 10 3/uL RBC 2.98 10 6/uL HGB 9.1 g/dL HCT 28.8 % MCV 96.6 fL MCH 30.5 pg MCHC 31.6 g/dL RDW 15.8 % Platelet Count 227 10 3/cmm MPV 10.5 fL Neutrophils 4.4 10 3/uL Lymphocytes 1.8 10 3/uL Monocytes 0.5 10 3/uL Eosinophils 0.1 10 3/uL Basophils 0.0 10 3/uL Neutrophil % 64.3 % Lymphocyte % 26.0 % Monocyte % 7.2 % Eosinophil % 1.2 % Basophils % 0.6 % Test performed on Nov 15, 2019 07:05 CBC Slide Review Slide Review Perform Test performed on Sep 14, 2019 12:00 Manual Lymphocytes 7.5 % Manual Monocytes 0.8 % Manual Eosinophils 0.1 % Manual Basophils 0.1 % NRBCs 0.0 /100 WBC Test performed on Jun 27, 2019 15:25 CA 15-3 7.6 U/mL CA 27.29 14.1 U/mL Impression: ER/VT negative HER-2/dunia positive, infiltrating adenocarcinoma of the right breast per ultrasound-guided biopsy done on 05/23/2019 Mammogram done on 04/28/2019 showed 3.9 x 4.5 x 6.6 cm right breast mass Which showed ER/VT negative, HER-2/dunia +3+, Ki-67 57% unfavorable CT PET scan done on 06/23/2019 showed intense uptake in right breast with evidence of central necrosis and skin involvement but no right axillary lymphadenopathy or distant metastatic disease. Echocardiogram done on 06/16/2019 showed ejection fraction between 60-65%.Clinical stage IIIB, Tb (skin involvement), N0, M0, ER/VT negative HER-2/dunia positive Left breast biopsy showed fibroadenoma Ms Areraga started on systemic therapy with weekly carboplatin/Taxol and 3 weekly Herceptin/perjeta on 07/12/2019. She has had significant diarrhea with the Herceptin/Perjeta. It is controlled when she takes antidiarrheal. Ms. Arreaga presented for followup after having 2 random falls. She stated she did not have any warning like dizziness or leg weakness prior to the falls but had sudden onset weakness and just fell. She had no apparent injury. But she stated she felt weak overall. She denied neuropathy. A MRI of the brain was done and did not show any brain mets. She has continued with chemotherapy. She did have followup breast ultrasound on 10/12/2019 which did show response. The current plan is to finish 6 cycles of chemotherapy and repeat the breast ultrasound and possible surgery. Plan: Discussed with patient regarding her labs white blood count 6.8 hemoglobin 9.1 crit 28.8 platelets 227,000 CMP within normal limits except glucose 177 Clinically, patient is doing well, tolerating neoadjuvant chemotherapy with carboplatin/Taxol/Herceptin/perjeta well but with expected side effects e.g. progressive anemia, generalized weakness and fatigue, hyperglycemia due to premedication with steroids. We will proceed with final dose of her neoadjuvant chemotherapy with carboplatin/Taxol and she'll return to clinic in 1 week with CBC CMP if hemoglobin less than 8 we'll consider blood transfusion and also refer to Dr. Ortiz for surgical evaluation as patient is considering bilateral mastectomy. And we will see her back 2 weeks after surgery for further discussion. As far as generalized weakness and fatigue is concern, most likely multifactorial including progressive anemia and due to hyperglycemia and chemotherapy. We will monitor her blood sugar and patient was also advised to follow sliding scale. As mentioned above consider blood transfusion if hemoglobin drops below 8 g Signed By: Andrés Husain M.D. <<Signature on File>>
== END 2019-11-29 23:59 | disposition home or self-care (01) ==
LOC: ONCMED 05:40
PROVIDERS: Nurse Practitioner; Family Provider Physician Assistant; Visit Provider Internal Medicine Hematology & Oncology
DX: Z51.12 Encounter for antineoplastic immunotherapy (principal); Z51.11 Encounter for antineoplastic chemotherapy; C50.411 Malignant neoplasm of upper-outer quadrant of right female breast; Z17.1 Estrogen receptor negative status [ER-]; T82.594A Other mechanical complication of infusion catheter, initial encounter; Y80.1 Therapeutic (nonsurgical) and rehabilitative physical medicine devices associated with adverse incidents; D64.81 Anemia due to antineoplastic chemotherapy; T45.1X5A Adverse effect of antineoplastic and immunosuppressive drugs, initial encounter; R73.9 Hyperglycemia, unspecified; T38.0X5A Adverse effect of glucocorticoids and synthetic analogues, initial encounter; R29.6 Repeated falls; I10 Essential (primary) hypertension; D24.2 Benign neoplasm of left breast; Z79.82 Long term (current) use of aspirin; Z79.4 Long term (current) use of insulin; Z79.899 Other long term (current) drug therapy
CPT/HCPCS: 36593; 80053; 85025; 96367; 96375; 96413; 96417; 99214; G0463; J1100; J1200; J1940; J2469; J2997; J3490; J7030; J7040; J7050; J9045; J9267; J9306; J9355

== ENCOUNTER 2019-12-02 08:00 | Outpatient (RCR) | payer MEDICARE, SELFPAY ==
[2019-11-30 12:05] LABS: Basophils % 0.3 %; Eosinophils # 0.1 10^3/uL (0.0-0.8); Eosinophils % 1.5 %; Hematocrit 29.7 % (37.0-47.0); Hemoglobin 9.6 g/dL (11.5-15.3); Lymphocytes # 1.9 10^3/uL (0.8-4.8); Lymphocytes % 31.4 %; Mean Corpuscular HGB Conc 32.3 g/dL (30.0-36.0); Mean Corpuscular Hemoglobin 31.7 pg (28.0-34.0); Mean Platelet Volume 10.2 fL (7.4-10.4); Monocytes # 0.5 10^3/uL (0.2-0.9); Monocytes % 8.3 %; Neutrophils # 3.5 10^3/uL (1.8-7.7); Neutrophils % 57.8 %; Nucleated Red Blood Cells % 0 %; Platelet Count 275 10^3/cmm (130-400); Red Blood Count 3.03 10^6/uL (4.1-5.3)
[2019-11-30 13:09] LABS: Alanine Aminotransferase 20 U/L (0-33); Albumin Level 3.5 g/dL (3.5-5.2); Alkaline Phosphatase 83 IU/L (35-105); Anion Gap 14.4 (5-19); Aspartate Amino Transferase 24 U/L (0-32); Blood Urea Nitrogen 10 mg/dL (8-23); Calcium 9.2 mg/dL (8.5-10.5); Carbon Dioxide 25 mmol/L (22-29); Chloride 104 mmol/L (98-107); Globulin 2.4 g/dL (1.3-4.6); Glucose 104 mg/dL (65-115); Osmolality Calculated 284 mOsm/kg (285-295); Potassium 4.4 mmol/L (3.5-5.1); Sodium 139 mmol/L (136-145); Total Bilirubin 0.4 mg/dL (0.15-1.2); Total Protein 5.9 g/dL (6.6-8.7)
== END 2019-12-29 23:59 | disposition home or self-care (01) ==
LOC: RADWPI 08:00
PROVIDERS: Family Provider Physician Assistant; Visit Provider Internal Medicine Hematology & Oncology
DX: C50.411 Malignant neoplasm of upper-outer quadrant of right female breast (principal)
CPT/HCPCS: 80053; 85025

== ENCOUNTER 2020-01-05 13:04 | Inpatient (IN) | payer MEDICARE, MEDICAID, SELFPAY ==
[2020-01-05] VITALS (17 sets, daily range): BP systolic 117–180; BP diastolic 54–84; PULSE 57–112; RESP 16–20; TEMP 36.2–37.1; O2SAT 91–96; BMI 26.9
[2020-01-05] MEDS: sodium chloride 0.9% 1,000 ML 30 ML IV (10:35)
[2020-01-05 10:36] LABS: Glucose Point of Care 90 mg/dL (70-110)
--- NOTE | 2020-01-05 10:36 | ANES.PREANE2 ---
Pre-Anesthetic Assessment Pre-Anesthetic Assessment: Height/Weight: Height 1.52 m Weight 62.596 kg Temp Pulse Resp BP Pulse Ox 97.6 F 57 L 16 177/69 95 01/05/20 10:35 01/05/20 10:35 01/05/20 10:35 01/05/20 10:35 01/05/20 10:35 Proposed Procedure: Operation Date: 01/05/20 10:45 Proposed Procedures p Mastectomy Radical Right modified(Right) - Marco Antonio Ortiz MD Was Beta Debbie taken within 24 hours: N/A Last intake: Intake Last Liquid Date 01/04/20 Last Liquid Time 20:00 Last Solid Date 01/04/20 Last Solid Time 20:00 Social: Social History: No alcohol and No tobacco Exam: Pre-Anes Outpt Exam: alert, oriented x 3, clear to auscultation bilaterally and regular rate & rhythm Airway: Submandibular: WNL Cervical ROM: WNL MP: 2 Dentition: False History/ROS: No significant history except as noted Pulmonary: Pulmonary: None reported CV/HEM: CV/HEM: Anemia : : None reported Hepatic: Hepatic: None reported Metabolic: Metabolic: DM Anesthetic Plan: ASA status: 2 Anesthesia: Anesthesia Evaluation and General Risk of > 500 ml blood loss (7ml/kg in children): Yes, adequate IV access and fluids planned Data Anesthesia Cardiac Studies: No Data to Display
--- NOTE | 2020-01-05 12:21 | P.OP_ITS ---
Operative Report Date of procedure: January 05, 2020 Pre-op Diagnosis: HER-2/dunia positive right breast cancer, status post neoadjuvant treatment. Post-op diagnosis: same Procedure Done: Right modified radical mastectomy. Specimens removed/disposition: Right breast with axillary contents. Surgeon: Marco Antonio Ortiz Anesthesia: General Estimated blood loss (mL): 75 Complications: None. Condition: stable Disposition: PACU Procedure: The patient was brought to the operating room and was placed in a supine position on the operating room table. General endotracheal anesthesia was induced. The right breast and axilla were prepped and draped in a sterile fashion. An elliptical incision was carried out from the sternum, surrounding the entire nipple areolar complex and coming back together at the inferior aspect of the axilla. Cautery was used to divide the dermis and was used to maintain hemostasis throughout the procedure. Skin flaps were created both superiorly and inferiorly by elevating the skin with skin hooks and using cautery to divide the breast tissue at the junction of the breast tissue and subcutaneous fat. This was carried out down to the chest wall both superiorly and inferiorly as well as medially, encompassing all of the breast tissue. The breast was then taken off of the chest wall using cautery from a medial to lateral direction. Significant vessels seen during the dissection were ligated with ties of 2-0 Vicryl. The dissection was then carried out around the lateral edge of the pectoralis muscle and the axilla was entered. Medially, the dis section was carried out along the chest wall and the long thoracic nerve was identified. The dissection was carried out laterally and posteriorly and the thoracodorsal vessels and nerve were identified. The tissue anterior to the nerves was brought inferiorly using blunt dissection and cautery, once again ligating vessels with ties of 2-0 Vicryl. The specimen was removed. The entire wound was irrigated and some small bleeding points were controlled with cautery. A 19 [place]ic fluted Jony drain was brought through a separate stab incision underneath the incision laterally under the axilla. The drain was sewn in at the skin using a suture of 2-0 silk. The drain was laid along the axilla and up along the anterior chest wall under the skin flaps. The dermis at the incision was brought back together using multiple inverted interrupted sutures of 3-0 Vicryl and the skin was finally approximated using skin vinicio. Some triple antibiotic ointment was placed over the incision and a sterile fluff dressing and a surgical brassiere/binder were then placed. The patient was subsequently taken to the recovery room in stable condition postoperatively.
[2020-01-05] MEDS: HYDROcodone-acetaminophen 5-325 mg Tablet PO ×2 (13:36→21:28)
[2020-01-05] MEDS: ketorolac 30 mg/mL INJ 15 MG IVP ×2 (13:37→19:20)
[2020-01-05] MEDS: heparin 5,000 unit/mL INJ 1 mL 5000 UNIT SUBCUT (13:37)
[2020-01-05] MEDS: famotidine 20 mg/2 mL INJ IVP (13:38)
--- NOTE | 2020-01-05 14:58 | XR_ITS ---
WS: [id number] XR chest 1V portable [id number] REASON FOR EXAM: TB ruleout FINDINGS: A catheter is seen in the left chest wall. Central line is seen extends from the left. The heart is not enlarged there is arteriosclerotic changes seen. There is surgical absence of the right breast. There is no evidence to suggest tuberculosis. XR/XR chest 1V portable [id number] IMPRESSION: No evidence of tuberculosis. Postop changes with a Mediport seen extending from the left side.
[2020-01-05] MEDS: sodium chlor 0.45% +KCl 20 mEq 20 MEQ/1,000 ML BAG 80 MEQ IV (15:44)
--- NOTE | 2020-01-05 15:50 | PC.RESP ---
Due to uncertainty of TB test Therapist refuses to give treatment at this time. Patient was not placed in a proper room to treat someone with TB either and Therapist does not believe it is safe to perform duties at this time. Therapist will be notified when test results come in and are clarified. Pt is in no respiratory distress at this time. Therapist will try again at a later time.
[2020-01-05] MEDS: ceFAZolin 1,000 MG in sodium chloride 0.9% (plus) 50 ML 100 MG IV (19:19)
[2020-01-05] MEDS: prochlorperazine 10 mg Tablet PO (19:20)
--- NOTE | 2020-01-05 19:41 | PC.NURSE ---
25 ml of output from shawna drain
[2020-01-05] MEDS: levalbuterol 0.63 mg/3 mL Neb INHALATION (21:10)
[2020-01-06] VITALS (8 sets, daily range): BP systolic 122–194; BP diastolic 48–71; PULSE 51–94; RESP 17–18; TEMP 36.3–37.1; O2SAT 93–96
[2020-01-06] MEDS: heparin 5,000 unit/mL INJ 1 mL 5000 UNIT SUBCUT (01:19)
[2020-01-06] MEDS: ketorolac 30 mg/mL INJ 15 MG IVP ×2 (01:20→06:25)
[2020-01-06] MEDS: famotidine 20 mg/2 mL INJ IVP (01:24)
[2020-01-06] MEDS: sodium chlor 0.45% +KCl 20 mEq 20 MEQ/1,000 ML BAG 80 MEQ IV (03:15)
[2020-01-06] MEDS: ceFAZolin 1,000 MG in sodium chloride 0.9% (plus) 50 ML 100 MG IV (03:15)
[2020-01-06] MEDS: levalbuterol 0.63 mg/3 mL Neb INHALATION (03:37)
[2020-01-06] MEDS: HYDROcodone-acetaminophen 5-325 mg Tablet PO ×2 (03:54→09:25)
--- NOTE | 2020-01-06 04:07 | PC.NURSE ---
pt up to bsc when back to bed with small liq ememis. reports no nausea at this time states feeling ok once back in bed.
--- NOTE | 2020-01-06 08:30 | PM.DCS ---
Discharge Providers Date of Admission: 01/05/20 13:04 Date of Discharge: January 06, 2020 Attending Provider at Admission: Marco Antonio Ortiz MD Attending Provider at Discharge: Marco Antonio Ortiz MD Diagnoses at Discharge Discharge Diagnosis (1) Right breast cancer with T3 tumor, >5 cm in greatest dimension: Status: Acute Problem details: HER-2/dunia positive, status post neoadjuvant treatment. Status post right modified radical mastectomy on 01/05/2020. Reason for Visit Reason for Visit: Reason For Visit: Mastectomy Hospital Course Hospital Course: The patient came into the hospital on 01/05/2020, on which day she underwent a right modified radical mastectomy. She was admitted to the floor afterwards. Surgically, her postoperative course was uneventful. Her Jony drain had the expected amount of output and other than her ongoing hypertension, no vital sign abnormalities were experienced. 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 The patient was instructed to wear a mask and a chest x-ray was performed, but showed no evidence of tuberculosis. By the following morning the patient was comfortable and wanted to go home. She was tolerating an oral diet. Her Jony drain had a minimal amount of serosanguineous fluid in the bulb when I examined her. She was instructed with respect to wound care, how to empty the Jony drain bulb, follow-up appointments, etc. Physical Exam Narrative: EXAM NARRATIVE: As above. Discharge Data Data Completed and Pending: Completed Studies During Hospitalization Category Date Time Status XR chest 1V kristine ble [id number] Stat Exams 01/05/20 14:58 Completed Pending at discharge Category Date Time Status Pathology: Surgic al [PTH] Routine Pth 01/05/20 12:19 Ordered Labs from last 24 hours 01/05/20 10:32 POC Glucose 90 Vitals: Last Vital Signs Temp 97.9 F 01/06/20 07:03 Pulse 57 L 01/06/20 07:03 Resp 18 01/06/20 07:03 BP 157/66 01/06/20 07:03 Pulse Ox 95 01/06/20 07:03 Discharge Plan Discharge Patient Disposition: Home, Self-Care Condition: Stable Prescriptions: New hydrocodone-acetaminophen 5-325 mg tablet 1 - 2 tab PO Q5H PRN (Reason: pain) Qty: 25 RF: 0 Continued multivitamin [Once Daily] Tablet See Rx Instructions .ROUTE .COMPLEX RF: 0 atorvastatin [Lipitor] 20 mg tablet 20 mg PO DAILY RF: 0 prochlorperazine maleate 10 mg Tablet 10 mg PO BID RF: 0 calcium carbonate [Calcium 500] 500 mg calcium (1,250 mg) Tablet 1,250 mg PO DAILY RF: 0 oxybutynin chloride 5 mg Tablet Extended Release 24hr 5 mg PO DAILY RF: 0 lorazepam 1 mg Tablet 1 mg PO DAILY RF: 0 cholecalciferol (vitamin D3) [Vitamin D3] 25 mcg (1,000 unit) Tablet 1,000 unit PO DAILY RF: 0 Discharge Orders: Discharge Order (Routine); Ordered 01/06/20 Ordered By: Marco Antonio Ortiz Referrals: Marco Antonio Ortiz MD [Physician] - 2 weeks Discharge Diet: Advance as tolerated Discharge Activity: Increase activity as tolerated Activity Restrictions/Additional Instructions: 1. Discharge to home today. 2. Appointment to see me in 10-14 days. 3. Bandage may be removed to shower. Keep postmastectomy garment on when not bathing. 4. Nursing: Please teach patient how to empty Jony drain and reconstitute bulb. Empty Jony drain at home as needed. 5. When dressing is off daily, manually massage/press on the areas around the incision to flatten out any ripples or ridges that may be developing to keep the skin flat. 6. [place] 5/325 1-2 tablets by mouth every 5 hours as needed for pain. #25, no refills. Discharge Attestations Time Spent in Discharge Care*: less than 30 min Quality Metrics Clinical Quality Measures During this hospital stay, did patient experience: None Coding Level of Care Code Acute Children Librarian for [place] Fwd Diagnoses Right breast cancer with T3 tumor, >5 cm in greatest dimension C50.911
[2020-01-06] MEDS: ondansetron 2 mg/ML SDV 2 mL 4 MG IVP (08:34)
--- NOTE | 2020-01-06 09:12 | PC.NURSE ---
patient educated on emptying and activating shawna drain to R chest. patient verbalized understanding and returned demonstration performed. all questions were answered appropriately.
[2020-01-06] MEDS: oxybutynin chloride XL 5 MG TABLET PO (09:24)
[2020-01-06] MEDS: prochlorperazine 10 mg Tablet PO (09:24)
[2020-01-06] MEDS: LORazepam 1 mg Tablet PO (09:24)
== END 2020-01-06 09:35 | disposition home or self-care (01) | DRG 583 ==
LOC: MEDSURG 14:48
PROVIDERS: Admitting Provider Surgery; Family Provider Physician Assistant; Visit Provider Surgery
PROC: 0HTT0ZZ Resection of Right Breast, Open Approach (ICD-10-PCS; principal; 2020-01-05 10:45)
DX: C50.911 Malignant neoplasm of unspecified site of right female breast (principal); D64.9 Anemia, unspecified; E11.9 Type 2 diabetes mellitus without complications
CPT/HCPCS: 12345; 36416; 71045; 82962; 88309; 94640; 96372; 96375; J0360; J0690; J1644; J1885; J2001; J2405; J2704; J2710; J3010; J3490; J7030; J7614; Q0164

== ENCOUNTER 2020-02-08 14:19 | Outpatient (CLI) | payer MEDICARE, SELFPAY ==
--- NOTE | 2020-02-08 17:05 | ONC FU_ITS ---
Dr. Husain follow up note Patient: Odalys Arreaga Unit #: [id number]: 1940 Dicatated By: Andrés Husain M.D.Date of Visit:Feb 08, 2020 Onc Med Follow-up/Prog Note History of Present Illness: Mrs. Arreaga is a 79 -year-old female with 3-4 month history of progressive right breast mass. She underwent mammogram on 04/28/2019 which showed scattered fibroglandular densities bilaterally, larger right dense breast mass measuring 3.9 x 4.5 x 6.6 cm with associated fine pleomorphic calcification. This extended to the nearby skin surface upper outer right breast. Associated with skin thickening. Several nodular densities in the left breast along the posterior nipple line near 12:00 position. She underwent ultrasound-guided needle biopsy of right breast mass. The final pathology report shows infiltrating ductal carcinoma, grade 3, solid and cribriform growth pattern; ER/NH negative, HER-2/dunia +3+, Ki-67 57% unfavorable. And left breast biopsy showed fibroadenoma. Ms Arreaga denies any history of hormone intake. Patient has no family history of breast cancer. Menarche at age 17 and first child at age 27. PET/CT on 06/23/2019 showed marked increase of metabolic activity in the right breast mass with evidence of necrotic center and possible skin involvement; No evidence of axillary lymphadenopathy or distant metastatic disease. Echocardiogram done on 06/16/2019 showed ejection fraction 60-65%. Ms Arreaga was offered treatment with neoadjuvant chemotherapy She started on systemic chemotherapy with weekly carboplatin/Taxol and 3 week Herceptin/perjeta on 07/03/2019. She has tolerated it well thus far. Ms Arreaga stated she was having random falls and states that she just had sudden onset weakness and just fell-. She denies any leg weakness prior to that but since the fall she has noticed that she is weaker in general-especially in her legs. She denies peripheral neuropathy. Underwent MRI scan of brain to rule out brain metastases on 09/15/2019, which showed no evidence of metastatic disease to the brain no enhancing masses. Severe chronic microvascular ischemic disease. No acute changes. Follow-up right breast sonogram done on 10/12/2019, after 4 cycles of systemic therapy with carboplatin/Taxol/Herceptin/perjeta showed excellent response, now right breast mass measures 3.2 x 4.2 x 1.8 cm compared to 5.8 x 5.4 x 6.6 cm previously, normal size lymph nodes in the right axilla. The plan is to complete 6 cycles and re ultrasound and refer for possible surgery. She states overall she is doing good. She has reported a couple falls in the shower over the last week or so. She states she just slips and goes down. She is denies any syncope or palpitations. She is had no TIA type symptoms. Underwent right modified mastectomy with right axillary lymph node dissection on January 05, 2020, final pathology report showed invasive ductal carcinoma breast high-grade, 4.2 cm in greatest dimension with a clear surgical margins tumor necrosis and 40 to 50% of the tumor mass with a dystrophic calcification. 0 out of 20 lymph nodes showed metastatic disease. yT2,yN0 Came for follow-up, denies any specific complaint except lower extremity edema which is chronic in nature. No fever or chills, no nausea or vomiting, no diarrhea or constipation, postmastectomy surgical scar, healing well. No new bony pains, no jaundice, no shortness of breath or palpitation. Medications: Aspirin Low Dose 81 (81 mg) Tablet Oral daily, Atorvastatin Calcium 20 (20 mg) Tablet Oral at bedtime, B-12 2,500 (2500 mcg) Tablet Oral daily, Centrum Silver Tablet, chewable Oral daily, Cholecalciferol 1,000 (1000 Units) Capsule Oral daily, Furosemide 1 Tablet (of 20 mg) Oral q 2 days, Lisinopril 1 Tablet (of 10 mg) Oral daily, NovoLIN R (100 Units/mL) Injection Take as Directed, Oxybutynin Chloride 5 (5 mg) Tablet Oral b.i.d. Allergies: Penicillins Review of Systems: Constitutional - Appetite is fair and weight has decreased. No fever, chills, hot flashes, or night sweats. Energy is poor, ENMT - No sinus congestion/drainage. No mouth sores. No sore throat or difficulty swallowing, Hematologic/Lymphatic - No abnormal bruising or bleeding, Respiratory - No shortness of breath. No cough. No pleuritic pain or hemoptysis, Cardiovascular - No angina pain. No palpitations, Gastrointestinal - No nausea or vomiting. No heartburn or acid reflux. No diarrhea or constipation. No blood in the stool or black stools, Genitourinary (F) - No dysuria or hematuria. No urinary frequency. No urgency. Positive for incontinence, Musculoskeletal - No joint or bone pain, Neurologic - No headache. Pt is unsteady on her feet today, Psychiatric - No anxiety or depression. No insomnia. Vital Signs: Performed on Feb 08, 2020 14:33 Height - 60.00 in Weight - 124.6 lbs (LOW) BSA - 1.53 sq.m BMI - 24.33 Temperature - 98.1 F (LOW) Pulse - 77 /min Respiration - 20 /min BP - 155/65 mm(hg) (HIGH) O2 Sat - 99 % Pain - 0 Performance Status: 1 - No physically strenuous activity, but ambulatory and able to carry out light or sedentary work (e.g. office work, light house work). (ECOG) Physical Examination: Respiratory - Lungs are clear, Cardiovascular - Regular rate and rhythm of heart, Gastrointestinal - Soft, bowel sounds present, Extremities - 2+ edema bilaterally. Lab/Imaging: Test performed on Nov 30, 2019 11:05 Sodium 139 mmol/L Potassium 4.4 mmol/L Chloride 104 mmol/L CO2 25 mmol/L Anion Gap 14.4 BUN 10 mg/dL Creatinine 0.8 mg/dL Cr Clearance (Est) 55.3700 mL/min Glucose 104 mg/dL Calcium 9.2 mg/dL Protein, Total 5.9 g/dL Albumin 3.5 g/dL Globulin 2.4 g/dL Bilirubin, Total 0.4 mg/dL ALT (SGPT) 20 U/L AST (SGOT) 24 U/L Alkaline Phosphatase 83 IU/L WBC 6.0 10 3/uL RBC 3.03 10 6/uL HGB 9.6 g/dL HCT 29.7 % MCV 98.0 fL MCH 31.7 pg MCHC 32.3 g/dL RDW 16.0 % Platelet Count 275 10 3/cmm MPV 10.2 fL Neutrophils 3.5 10 3/uL Lymphocytes 1.9 10 3/uL Monocytes 0.5 10 3/uL Eosinophils 0.1 10 3/uL Basophils 0.0 10 3/uL Neutrophil % 57.8 % Lymphocyte % 31.4 % Monocyte % 8.3 % Eosinophil % 1.5 % Basophils % 0.3 % Test performed on Nov 15, 2019 07:05 CBC Slide Review Slide Review Perform Test performed on Sep 14, 2019 12:00 Manual Lymphocytes 7.5 % Manual Monocytes 0.8 % Manual Eosinophils 0.1 % Manual Basophils 0.1 % NRBCs 0.0 /100 WBC Impression: ER/NH negative HER-2/dunia positive, infiltrating adenocarcinoma of the right breast per ultrasound-guided biopsy done on 05/23/2019 Mammogram done on 04/28/2019 showed 3.9 x 4.5 x 6.6 cm right breast mass Which showed ER/NH negative, HER-2/dunia +3+, Ki-67 57% unfavorable CT PET scan done on 06/23/2019 showed intense uptake in right breast with evidence of central necrosis and skin involvement but no right axillary lymphadenopathy or distant metastatic disease. Echocardiogram done on 06/16/2019 showed ejection fraction between 60-65%. Clinical stage IIIB, Tb (skin involvement), N0, M0, ER/NH negative HER-2/dunia positive Left breast biopsy showed fibroadenoma Ms Arreaga started on systemic therapy with weekly carboplatin/Taxol and 3 weekly Herceptin/perjeta on 07/12/2019. She has had significant diarrhea with the Herceptin/Perjeta. It is controlled when she takes antidiarrheal. Ms. Arreaga presented for followup after having 2 random falls. She stated she did not have any warning like dizziness or leg weakness prior to the falls but had sudden onset weakness and just fell. She had no apparent injury. But she stated she felt weak overall. She denied neuropathy. A MRI of the brain was done and did not show any brain mets. She has continued with chemotherapy. She did have followup breast ultrasound on 10/12/2019 which did show response. The current plan is to finish 6 cycles of chemotherapy and repeat the breast ultrasound and possible surgery. Underwent right modified mastectomy with right axillary lymph node dissection on January 05, 2020 showed invasive ductal carcinoma high-grade, 4.2 cm in greatest dimension. With clear surgical margins, tumor necrosis present in 40 to 50% of the tumor mass with dystrophic calcification. No skin involvement, clear surgical margins yT2 . 0 out of 20 lymph nodes examined showed no evidence of metastatic disease. yN0 Plan: discussed with patient and her [id number] regarding her postlumpectomy pathology report which showed good response to neoadjuvant chemotherapy e.g. no axillary lymph node involvement, clear surgical margins with tumor necrosis present in 40 to 50% tumor mass but still there is a viable disease, further treatment is recommended., As per NCCN guidelines, and the patient with hormone negative and HER-2/dunia positive disease, after neoadjuvant chemotherapy patient has persistent disease, treatment with Kadcyla is recommended and patient has hormone negative, HER-2/dunia positive disease so treatment options including Kadcyla ([id number]) but concern his her age and comorbid conditions, if patient and family agreed, we made consider modified dose kadcyla at 2.4 mg/kg every 3 weeks x14 cycle, if tolerated, titrate up her dose to the recommended 3.6 mg/kg every 3 weeks. On the other hand if patient or family has a concern about related side effects and toxicity then we would continue with Herceptin plus perjeta for total 1 year. Patient's [id number] would like to review kadcyla related information and wants to discuss with other family member before making any decision. So she was given the information. In the meantime we will consider follow-up echocardiogram to assess cardiac status as patient has persistent lower extremity edema could be due to congestive heart failure or fluid retention due to salt rich diet. Patient was advised to avoid salt or canned food. And she was given prescription for Lasix 20 mg p.o. daily along with potassium supplement, she will take it daily for 3 days then on as-needed basis. Patient will return to clinic in 1 week with echocardiogram and hopefully by that time family will make decision either to continue with Herceptin/perjeta or Kadcyla. Signed By: Andrés Husain M.D. <<Signature on File>>
== END 2020-02-08 14:20 | disposition home or self-care (01) ==
LOC: ONCMED 14:24
PROVIDERS: PCP Physician Assistant; Visit Provider Internal Medicine Hematology & Oncology
DX: C50.911 Malignant neoplasm of unspecified site of right female breast (principal); Z17.1 Estrogen receptor negative status [ER-]; I25.89 Other forms of chronic ischemic heart disease; Z92.21 Personal history of antineoplastic chemotherapy; Z79.818 Long term (current) use of other agents affecting estrogen receptors and estrogen levels
CPT/HCPCS: 99214

== ENCOUNTER 2020-02-13 13:25 | Outpatient (RCR) | payer MEDICARE, SELFPAY ==
[2020-02-13 16:32] LABS: Alanine Aminotransferase 12 U/L (0-33); Albumin Level 3.3 g/dL (3.5-5.2); Alkaline Phosphatase 82 IU/L (35-105); Anion Gap 16.4 (5-19); Aspartate Amino Transferase 26 U/L (0-32); Blood Urea Nitrogen 15 mg/dL (8-23); Calcium 9.5 mg/dL (8.5-10.5); Carbon Dioxide 27 mmol/L (22-29); Chloride 100 mmol/L (98-107); Globulin 3.2 g/dL (1.3-4.6); Glucose 152 mg/dL (65-115); Osmolality Calculated 289 mOsm/kg (285-295); Potassium 3.4 mmol/L (3.5-5.1); Sodium 140 mmol/L (136-145); Total Bilirubin 0.3 mg/dL (0.15-1.2); Total Protein 6.5 g/dL (6.6-8.7)
[2020-02-13 16:59] LABS: Basophils # 0.1 10^3/uL (0.0-0.1); Basophils % 1.1 %; Eosinophils # 0.1 10^3/uL (0.0-0.8); Eosinophils % 1.9 %; Hematocrit 29.2 % (37.0-47.0); Hemoglobin 9.4 g/dL (11.5-15.3); Lymphocytes # 2.4 10^3/uL (0.8-4.8); Lymphocytes % 34.1 %; Mean Corpuscular HGB Conc 32.2 g/dL (30.0-36.0); Mean Corpuscular Hemoglobin 28.9 pg (28.0-34.0); Mean Corpuscular Volume 89.8 fL (81-99); Monocytes # 0.7 10^3/uL (0.2-0.9); Monocytes % 9.6 %; Neutrophils # 3.7 10^3/uL (1.8-7.7); Nucleated Red Blood Cells % 0 %; Platelet Count 289 10^3/cmm (130-400); Red Blood Count 3.25 10^6/uL (4.1-5.3); Red Cell Distribution Width 14.1 % (12.1-15.1)
== END 2020-02-28 23:59 | disposition home or self-care (01) ==
LOC: ONCMED 13:25
PROVIDERS: PCP Physician Assistant; Visit Provider Internal Medicine Hematology & Oncology
DX: C50.411 Malignant neoplasm of upper-outer quadrant of right female breast (principal); Z17.1 Estrogen receptor negative status [ER-]; D64.9 Anemia, unspecified; I10 Essential (primary) hypertension; Z86.11 Personal history of tuberculosis
CPT/HCPCS: 80053; 85025

== ENCOUNTER 2020-03-12 13:47 | Outpatient (RCR) | payer MEDICARE, SELFPAY ==
--- NOTE | 2020-03-12 13:52 | USCV_ITS ---
Odalys Arreaga Age: 79 Gender: F : 1940 Exam Date: 03/12/2020 14:01 Ordering Phys: Andrés Husain MD Technologist: Terrie Keith Exam Location: [facility] [place] Indication: BREAST CANCER TREATMENT BP: / HR: 53 Rhythm: Sinus Technical Quality: MEASUREMENTS (Male / Female) Normal Values 2D ECHO LV Diastolic Diameter PLAX 3.5 cm 4.2 - 5.9 / 3.9 - 5.3 cm LV Systolic Diameter PLAX 2.8 cm LV Chamber Size 3.1 cm IVS Diastolic Thickness 1.4 cm 0.6 - 1.0 / 0.6 - 0.9 cm IVS Systolic Thickness 2.1 cm LVPW Diastolic Thickness 1.4 cm 0.6 - 1.0 / 0.6 - 0.9 cm LVPW Systolic Thickness 1.6 cm RV Chamber Size 3.1 cm LVOT Diameter 2.0 cm LV Ejection Fraction 2D Teich 43.0 % LV Ejection Fraction MOD 2C 63.5 % LV Ejection Fraction 2C AL 66.7 % LA Diameter 4.3 cm LA Width 2.8 cm LA Height 3.9 cm RA Width 3.0 cm RA Height 5.0 cm Aorta at Sinotubular Diameter 2.5 cm M-MODE LV Diastolic Diameter MM 4.1 cm 4.2 - 5.9 / 3.9 - 5.3 cm LV Systolic Diameter MM 2.3 cm LV Ejection Fraction MM Teich 74.9 % IVS Diastolic Thickness MM 1.1 cm 0.6 - 1.0 / 0.6 - 0.9 cm IVS Systolic Thickness MM 1.3 cm LVPW Diastolic Thickness MM 0.9 cm 0.6 - 1.0 / 0.6 - 0.9 cm LVPW Systolic Thickness MM 1.6 cm RV Diastolic Diameter MM 1.5 cm Aortic Annulus Diameter 2.7 cm LA Ao Ratio MM 1.6 MV E Point Septal Separation 0.3 cm DOPPLER AV Peak Velocity 147.0 cm/s LVOT Peak Velocity 83.0 cm/s AV Area Cont Eq vti 2.0 cm squared AV Area Cont Eq pk 1.8 cm squared MV Area PHT 2.3 cm squared Mitral E to A Ratio 0.8 MV E' Velocity 10.0 cm/s Mitral E to MV E' Ratio 9.7 Mitral E to LV E' Lateral Ratio 8.2 Mitral E to LV E' Septal Ratio 11.9 TR Peak Velocity 287.2 cm/s TR Peak Gradient 33.0 mmHg TR Mean Velocity 223.0 cm/s TR Mean Gradient 22.0 mmHg TR Velocity Time Integral 97.6 cm TV Peak E Velocity 53.0 cm/s Right Atrial Pressure 3.0 mmHg Pulmonary Artery Systolic Pressu 36.0 mmHg PV Peak Velocity 42.0 cm/s RV Acceleration Time 0.1 s RV Ejection Time 0.3 s RV AcT/ET 0.3 FINDINGS Left Ventricle Normal left ventricular cavity size. Normal left ventricular systolic function. No regional wall motion abnormalities. Left ventricular ejection fraction is estimated at 65%. Grade I/IV diastolic dysfunction (abnormal relaxation filling pattern), normal to mildly elevated filling pressures. Right Ventricle The right ventricle is normal in size and function. Right Atrium The right atrium is normal in size. Left Atrium Moderately increased left atrial size. Mitral Valve Moderately thickened mitral valve. No mitral valve stenosis. Mild mitral valve regurgitation. Aortic Valve Aortic valve sclerosis without stenosis or regurgitation. Tricuspid Valve Trace tricuspid valve regurgitation. Pulmonic Valve Structurally normal pulmonic valve without significant stenosis. There is no pulmonic regurgitation. Pericardium Normal pericardium without effusion. Aorta Normal ascending aorta dimension. CONCLUSIONS 1-Normal left ventricular cavity size. Normal left ventricular systolic function. No regional wall motion abnormalities. Left ventricular ejection fraction is estimated at 65%. Grade I/IV diastolic dysfunction (abnormal relaxation filling pattern), normal to mildly elevated filling pressures. 2-Moderately thickened mitral valve. No mitral valve stenosis. Mild mitral valve regurgitation. 3-Trace tricuspid valve regurgitation. 4-Moderately increased left atrial size. 5-There is no pericardial effusion. 6-When compared to the prior echocardiogram dated 2018 there appeared to be mild mitral and tricuspid valve regurgitation now Pradeep Freeman MD (Electronically Signed) Final Date: 12 March 2020 20:06 S
== END 2020-03-30 23:59 | disposition home or self-care (01) ==
LOC: RAD 13:47
PROVIDERS: PCP Physician Assistant; Visit Provider Internal Medicine Hematology & Oncology
DX: C50.411 Malignant neoplasm of upper-outer quadrant of right female breast (principal); I08.1 Rheumatic disorders of both mitral and tricuspid valves
CPT/HCPCS: 93306

== ENCOUNTER 2021-12-31 09:46 | Outpatient (CLI) | payer MEDICARE, SELFPAY ==
--- NOTE | 2021-12-31 10:01 | MM_ITS ---
WS: [id number] DIAGNOSTIC LEFT DIGITAL MAMMOGRAM WITH CAD HISTORY: HX OF BREAST CA;RT MAST COMPARISON: 04/28/2019, prior ultrasound 04/28/2019 Technique: CC, MLO and ML views. Breast composition: There are scattered areas of fibroglandular density. Biopsy clip at the 12:00 lo cation at a middle depth within an adjacent mass which is not increasing in size. There are multiple additional small breast masses scattered throughout the breast. There is a mass measuring [address] the posterior chest wall and just above the nipple on the MLO projection. This mass was present on prior studies but now contains scattered calcifications. Mass is also slightly increased in size. Ma ss localizes to slice 34 on the CC image and slice 33 on the MLO image. Mediport present over the LEFT chest wall. MM/[place] [id number] IMPRESSION: BI-RADS: 0-Incomplete: Need additional imaging evaluation FOLLOW UP: Need Additional Imaging LEFT breast ultrasound recommended of the mass in the posterior LEFT breast shereen r 11:00. This mass now contains calcifications.
== END 2021-12-31 09:47 | disposition home or self-care (01) ==
LOC: RAD 09:49
PROVIDERS: PCP Physician Assistant; Visit Provider Physician Assistant
DX: Z12.31 Encounter for screening mammogram for malignant neoplasm of breast (principal)
CPT/HCPCS: 77061; 77063; 77067

== ENCOUNTER 2022-03-17 10:38 | Outpatient (CLI) | payer MEDICARE, MEDICAID, SELFPAY ==
--- NOTE | 2022-03-17 10:51 | US_ITS ---
WS: [id number] ULTRASOUND LEFT BREAST HISTORY: ABNORMAL MAMMOGRAM LT BREAST COMPARISON: 12/31/2021, 04/28/2019 TECHNIQUE: 2-D and Doppler. The mass in the posterior LEFT breast against the chest wall and nipple is not definitely visualized by ultrasound. There is a soft tissue mass at 11:00, 3 cm from the nipple that may correspond to the mammographic mass. This mass measures 7 x 4 x 8 mm and is the correct shape and size. Mass is expecte d to be slightly further away from the nipple and 3 cm. There is an additional mass more anteriorly w hich has been present on multiple prior studies. There is one image on the mammogram from 2019 in which I believe this mass is present without change . US/US breast LT limited* [id number] IMPRESSION: BI-RADS: 3-Probably Benign FOLLOW-UP: 6 Month Follow-up Mass in the LEFT breast at 11:00, 3 cm from the nipple may correspond to the ma mmographic abnormality. The location is not as far posterior as expected. This mass may be stable. There is one mammographic image from 2019 and which I belie ve this is present. Recommend 6 month follow-up to document continued stability . Mammogram and ultrasound follow-up recommended.
== END 2022-03-17 10:39 | disposition home or self-care (01) ==
PROVIDERS: PCP Physician Assistant; Visit Provider Physician Assistant
DX: R92.8 Other abnormal and inconclusive findings on diagnostic imaging of breast (principal)
CPT/HCPCS: 76642

== ENCOUNTER → 2022-03-21 09:56 | Outpatient (BNVA) | payer MEDICARE, SELFPAY | PROVIDERS: PCP Physician Assistant; Visit Provider Otolaryngology | DX: H90.0 Conductive hearing loss, bilateral (principal); H61.23 Impacted cerumen, bilateral | CPT/HCPCS: 69210; 99203 ==

== ENCOUNTER → 2022-03-28 11:09 | Outpatient (BNVA) | payer MEDICARE, SELFPAY | PROVIDERS: PCP Physician Assistant; Visit Provider Otolaryngology | DX: H61.23 Impacted cerumen, bilateral (principal); H90.0 Conductive hearing loss, bilateral | CPT/HCPCS: 69210; 99213 ==

== ENCOUNTER 2022-09-22 10:06 | Outpatient (CLI) | payer MEDICARE, MEDICAID, SELFPAY ==
--- NOTE | 2022-09-22 10:33 | MM_ITS ---
WS: [id number] DIAGNOSTIC LEFT DIGITAL TOMOSYNTHESIS MAMMOGRAPHY WITH CAD. HISTORY: 6MFU;HX OF BREAST CA;RT MST COMPARISON: 12/31/2021, 04/28/2019 and 03/17/2022 Technique: CC, MLO and ML views. Spot compression LEFT CC, ML and MLO. Breast composition: There are scattered areas of fibroglandular density. Previously described mass w ith calcifications is very difficult to adequately imaged due to patient's kyphotic body habitus. On one image the mass is identified but there is motion. No increase in size of this mass. The remaining calcifications are stable. Ultrasound will not be performed as it probably will not provide addition al information. MM/[place] [id number] IMPRESSION: BI-RADS: 3-Probably Benign FOLLOW UP: 6 Month Follow-up 6 month diagnostic LEFT mammogram to reevaluate the mass against the posterior chest wall. 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 No increase in size since 12/31/2021.
== END 2022-09-22 10:07 | disposition home or self-care (01) ==
PROVIDERS: PCP Family Medicine; Visit Provider Physician Assistant
DX: Z12.31 Encounter for screening mammogram for malignant neoplasm of breast (principal); N63.20 Unspecified lump in the left breast, unspecified quadrant
CPT/HCPCS: 77061; G0279

== ENCOUNTER 2022-10-08 20:21 | Emergency (ER) | payer MEDICARE, MEDICAID, SELFPAY ==
--- NOTE | 2022-10-08 20:23 | ED_ITS ---
HPI - General Adult General: Chief complaint: Weakness Stated complaint: NOT FEELING WELL Time Seen by Provider: 10/08/22 20:22 History of Present Illness: Ms. Arreaga is an 82-year-old lady with history of hypertension presented to the emergency department for generalized illness. She reports being in her baseline health and began to feel somewhat unwell over the past 4 to 5 days. Today she notes generalized unwell feeling as well as headache associated with high blood pressure. She reports compliance with her medication regimen. She denies frequent history of headaches. Headache is frontal in nature and moderate pounding in intensity. Denies other focal neurologic symptoms. No other specific changes in health, exacerbating, or alleviating factors identified. Onset (ago): day(s) Severity: moderate Quality: other Pain Consistency: constant Relieving factors: none Exacerbating factors: none Associated symptoms: Reports headache(s) and malaise Review of Systems General: Reports: 10 or more systems reviewed and unremarkable except in HPI and below Const: Reports: malaise Neuro: Reports: headache(s) PFSH ED PFSH: Medical History Anemia Arthritis Chronic back pain Hypertension Port-A-Cath in place Positive TB test Surgical History Hx of appendectomy Hx of subtotal mastectomy of right breast Social History Smoking and tobacco status: never smoked Physical Exam Const: COMMON NORMALS: patient oriented x3 and alert GENERAL APPEARANCE: c ooperative and well developed HENMT: COMMON NORMALS: normocephalic and atraumatic HEAD & SCALP: normocephalic and atraumatic THROAT: posterior oropharynx normal Eye: COMMON NORMALS: conjunctivae normal CONJUNCTIVA: Yes conjunctivae normal SCLERA: sclerae normal Neck/C-Spine: COMMON NORMALS: supple GENERAL: Yes trachea midline Resp: COMMON NORMALS: clear to auscultation bilaterally EFFORT & INSPECTION: Yes able to speak in complete sentences AUSCULTATION: clear to auscultation bilaterally Cardio: COMMON NORMALS: regular rate and regular rhythm RATE: regular rate RHYTHM: regular rhythm GI: COMMON NORMALS: Soft to palpation PALPATION: Yes Soft to palpation and No Tenderness to palpation present (GI) Extremity: GENERAL: Yes normal exam except as noted and No edema Neuro: COMMON NORMALS: patient oriented x3, CN's II-XII intact bilaterally, moves all extremities, no focal motor deficits and no sensory deficits noted SENSORIUM/ORIENTATION: Yes alert and No Orientation impaired Psych: COMMON NORMALS: mental status grossly normal and Normal thought process present THOUGHT PROCESS: Normal thought process present Course Vital Signs: Vital signs: Vital Signs Temperature 97.7 F 10/08/22 20:29 Pulse Rate 78 10/09/22 00:48 Respiratory Rate 20 H 10/09/22 00:48 Blood Pressure 128/59 10/09/22 00:48 Pulse Oximetry 95 10/09/22 00:48 Oxygen Delivery Me thod 10/08/22 22:29 [facility] - General Adult Medical Decision Making 82-year-old lady presenting with headache and generalized malaise. Exam as above, patient is nontoxic, there is no meningismus, no focal neurologic deficits. EKG notable for sinus bradycardia, nonspecific ST segment abnormalities, left axis deviation, normal intervals, no STEMI. Essentially unremarkable hematologic and metabolic panel. Negative range 2-hour delta troponin. TSH is elevated with normal free T4. Negative viral studies and urinalysis. Chest x-ray with no lobar consolidation or pneumothorax. Head CT negative for acute intracranial pathology. Patient had improvement in symptoms and blood pressure with hydralazine. Most likely etiology of patient symptoms is unclear, she does have hypertension and headache which is improved. This may or may not be related. Plan to adjust blood pressure medications in the outpatient setting. The results of ED evaluation were discussed with the patient including prescriptions and/or symptomatic cares (if applicable) including appropriate and responsible use, followup plan, and return precautions. The patient verbalized understanding and felt safe for discharge. Medical Records I reviewed the patient's medical records. Lab Data I reviewed the patient's lab results. 10/08/22 20:35 10/08/22 20:35 Radiology Impressions Chest X-Ray 10/08/22 20:36 IMPRESSION: No acute finding. Head CT 10/08/22 20:36 IMPRESSION: 1. No acute intracranial abnormality. 2. Moderate age-related changes. Laboratory Results WBC 9.3 10^3/uL (4.0-10.0) 10/08/22 20:35 RBC 4.18 10^6/uL (4.1-5.3) 10/08/22 20:35 Hgb 12.2 g/dL (11.5-15.3) 10/08/22 20:35 Hct 37.5 % (37.0-47.0) 10/08/22 20:35 MCV 89.7 fl (81-99) 10/08/22 20: MCH 29.2 pg (28.0-34.0) 10/08/22 20: MCHC 32.5 g/dL (30.0-36.0) 10/08/22 20:35 RDW 12.7 % (12.1-15.1) 10/08/22 20:35 Plt Count 229 10^3/cmm (130-400) 10/08/22 20: MPV 10.7 fL (7.4-10.4) H 10/08/22 20:35 Neut % (Auto) 51.6 % 10/08/22 20:35 Lymph % (Auto) 36.1 % 10/08/22 20:35 [place] % (Auto) 8.6 % 10/08/22 20:35 Eos % (Auto) 2.6 % 10/08/22 20:35 Baso % (Auto) 0.8 % 10/08/22 20:35 Neut # (Auto) 4.77 10^3/uL (1.8-7.7) 10/08/22 20:35 Lymph # (Auto) 3.3 10^3/uL (0.8-4.8) 10/08/22 20:35 [place] # (Auto) 0.8 10^3/uL (0.2-0.9) 10/08/22 20:35 Eos # (Auto) 0.2 10^3/uL (0.0-0.8) 10/08/22 20:35 Baso # (Auto) 0.1 10^3/uL (0.0-0.1) 10/08/22 20:35 Nucleated RBC % (auto) 0 % 10/08/22 20:35 Nucleated RBCs # 0.0 /100WBC 10/08/22 20:35 Sodium 140 mmol/L (136-145) 10/08/22 20:35 Potassium 4.0 mmol/L (3.5-5.1) 10/08/22 20:35 Chloride 106 mmol/L (98-107) 10/08/22 20:35 Carbon Dioxide 24 mmol/L (22-29) 10/08/22 20:35 Anion Gap 14.0 (5-19) 10/08/22 20:35 BUN 21 mg/dL (8-23) 10/08/22 20:35 Creatinine 0.9 mg/dL (0.5-0.9) 10/08/22 20:35 GFR Calculation Not Reportable 10/08/22 20:35 Glucose 125 mg/dL (65-115) H 10/08/22 20:35 Calculated Osmolality 294 mOsm/kg (285-295) 10/08/22 20:35 Calcium 8.9 mg/dL (8.5-10.5) 10/08/22 20:35 Magnesium 1.8 mg/dL (1.7-2.3) 10/08/22 20:35 Total Bilirubin 0.2 mg/dL (0.15-1.2) 10/08/22 20:35 AST 26 U/L (0-32) 10/08/22 20:35 ALT 25 U/L (0-33) 10/08/22 20:35 Alkaline Phosphatase 112 U/L (35-105) H 10/08/22 20:35 Troponin T Baseline 12 ng/L (0-10) H 10/08/22 20:35 Troponin T 120 Minute 12.23 ng/L (0-10) H 10/08/22 22:30 Delta Troponin T 0.23 ABS# (0-10) 10/08/22 22:30 NT-Pro-B Natriuret Pep 113 pg/mL (0-450) 10/08/22 20:35 Total Protein 6.7 g/dL (6.6-8.7) 10/08/22 20:35 Albumin 4.1 g/dL (3.5-5.2) 10/08/22 20:35 Globulin 2.6 g/dL (1.3-4.6) 10/08/22 20:35 TSH 4.40 uIU/mL (0.27-4.20) H 10/08/22 20:35 Free T4 1.11 ng/dL (0.82-1.77) 10/08/22 20:35 Urine Color Colorless (Yellow) 10/08/22 21:00 Urine Appearance Clear (CLEAR) 10/08/22 21:00 Urine pH 7 (5-7) 10/08/22 21:00 Ur Specific [place] 1.010 (1.005-1.030) 10/08/22 21:00 Urine Protein Neg (Negative) 10/08/22 21:00 Urine Glucose (UA) Norm (Normal) 10/08/22 21:00 Urine Ketones Negative (Negative) 10/08/22 21:00 Urine Blood Neg (Negative) 10/08/22 21:00 Urine Nitrate Negative (Negative) 10/08/22 21:00 Urine Bilirubin Neg (Negative) 10/08/22 21:00 Urine Urobilinogen Norm mg/dL (Negative) 10/08/22 21:00 Ur Leukocyte Esterase Negative (Negative) 10/08/22 21:00 Influenza Type A Ag negative (Negative) 10/08/22 21:06 Influenza Type B Ag negative (Negative) 10/08/22 21:06 SARS-CoV-2 Ag (Rapid) negative (Negative) 10/08/22 21:06 Discharge Plan Discharge Patient Disposition: Home Clinical Impression: Malaise and fatigue, Hypertension, Headache Condition: Stable Prescriptions: New lisinopril 10 mg tablet 10 mg PO DAILY Qty: 30 0RF Discontinued lisinopril 5 mg Tablet 5 mg PO No Action multivitamin [Once Daily] Tablet See Rx Instructions .ROUTE .COMPLEX Rx Instructions: TAKE 1 DAILY atorvastatin [Lipitor] 20 mg tablet 20 mg PO DAILY prochlorperazine maleate 10 mg Tablet 10 mg PO BID calcium carbonate [Calcium 500] 500 mg calcium (1,250 mg) Tablet 1,250 mg PO DAILY oxybutynin chloride 5 mg Tablet Extended Release 24hr 5 mg PO DAILY lorazepam 1 mg Tablet 1 mg PO DAILY cholecalciferol (vitamin D3) [Vitamin D3] 25 mcg (1,000 unit) Tablet 1,000 unit PO DAILY hydrocodone-acetaminophen 5-325 mg tablet 1 - 2 tab PO Q5H PRN (Reason: pain) Qty: 25 0RF Discharge Orders: Discharge ED (Routine); Ordered 10/08/22 Ordered By: Valeriy Buckley Referrals: Sid Wall MD [Primary Care Provider] - Discharge Diet: Usual diet Discharge Activity: Increase activity as tolerated Patient Instructions: Weakness (ED), Hypertension (ED), Fatigue (ED) Activity Restrictions/Additional Instructions: Thank you for visiting the emergency department. You were seen and evaluated for high blood pressure associated with headache and generalized malaise. The exact cause of your symptoms is unclear that we are pleased that you end improvement. Will increase your lisinopril from 5 mg daily to 10 mg daily. Please follow-up with your primary care provider. Return to the emergency department for worsening symptoms or anything else that you are concerned about and feel needs emergency department evaluation. Coding Level of Care Code ED Crosstie Inspector for Lauryn Clarke
[2022-10-08 20:27] VITALS: BMI 27.3
[2022-10-08 20:29] VITALS: BP 197/80; PULSE 57; RESP 12; TEMP 36.5; O2SAT 98
--- NOTE | 2022-10-08 20:36 | XRR_ITS ---
PROCEDURE INFORMATION: Exam: XR Chest Exam date and time: 10/08/2022 8:41 PM Age: 82 years old Clinical indication: Other: Hypertension; Prior surgery; Additional info: Hypertension 2 days TECHNIQUE: Imaging protocol: Radiologic exam of the chest. Views: 1 view. COMPARISON: CR XR chest 1V portable [id number] 01/05/2020 3:42 PM FINDINGS: Tubes, catheters and devices: Left-sided port in place. Lungs: Unremarkable. No consolidation. Pleural spaces: Unremarkable. No pleural effusion. No pneumothorax. Heart/Mediastinum: Advanced diffuse vascular calcification noted. No cardiomegaly. Bones/joints: Unremarkable. XR/XR chest 1V portable [id number] IMPRESSION: No acute finding.
--- NOTE | 2022-10-08 20:36 | CTR_ITS ---
PROCEDURE INFORMATION: Exam: CT Head Without Contrast Exam date and time: 10/08/2022 8:48 PM Age: 82 years old Clinical indication: Pain; Headache; Patient HX: C/O MEANS with general weakness. Hypertensive on monitor. History of breast cancer. ; Additional info: Headache, HTN TECHNIQUE: Imaging protocol: Computed tomography of the head without contrast. Radiation optimization: All CT scans at this facility use at least one of these dose optimization techniques: automated exposure control; mA and/or kV adjustment per patient size (includes targeted exams where dose is matched to clinical indication); or iterative reconstruction. Other protocol: This patient has received 0 known CTs and 0 known cardiac nuclear medicine studies in the 12 months prior to the current study. COMPARISON: MR head wo/w con [id number] 09/15/2019 8:26 AM RADIATION DOSE METRICS: Total DLP (mGy-cm): 1039.48 FINDINGS: Brain: No focal hemorrhage or midline shift is identified. The ventricles and parenchyma show moderate atrophy and chronic bicerebral white matter ischemic change. A few scattered old lacunes are likely. Cerebral ventricles: No ventriculomegaly or evidence of hydrocephalus. Paranasal sinuses: No evidence of acute sinusitis. Mastoid air cells: Visualized mastoid air cells are well aerated. Bones/joints: No displaced skull fracture is noted. Soft tissues: Unremarkable. Vasculature: Diffuse vascular calcifications are present. CT/CT head wo con* [id number] IMPRESSION: 1. No acute intracranial abnormality. 2. Moderate age-related changes.
[2022-10-08 20:46] LABS: Basophils # 0.1 10^3/uL (0.0-0.1); Basophils % 0.8 %; Eosinophils # 0.2 10^3/uL (0.0-0.8); Eosinophils % 2.6 %; Hematocrit 37.5 % (37.0-47.0); Hemoglobin 12.2 g/dL (11.5-15.3); Lymphocytes # 3.3 10^3/uL (0.8-4.8); Lymphocytes % 36.1 %; Mean Corpuscular HGB Conc 32.5 g/dL (30.0-36.0); Mean Corpuscular Hemoglobin 29.2 pg (28.0-34.0); Mean Corpuscular Volume 89.7 fl (81-99); Mean Platelet Volume 10.7 fL (7.4-10.4); Monocytes # 0.8 10^3/uL (0.2-0.9); Monocytes % 8.6 %; Neutrophils # 4.77 10^3/uL (1.8-7.7); Neutrophils % 51.6 %; Nucleated Red Blood Cells % 0 %; Platelet Count 229 10^3/cmm (130-400); Red Blood Count 4.18 10^6/uL (4.1-5.3); Red Cell Distribution Width 12.7 % (12.1-15.1); White Blood Count 9.3 10^3/uL (4.0-10.0)
[2022-10-08 20:59] VITALS: BP 186/65; PULSE 54; RESP 18; O2SAT 97
--- NOTE | 2022-10-08 21:03 | ECG_ITS ---
[facility] Test Date: 2022-10-08 Pat Name: Odalys Arreaga Department: Room: Gender: Female Cooker Operator: : 1940 Requested By: Valeriy Buckley Order Number: [id number] Teddy MD: Bryon Reaves M.D. Measurements Intervals [place] Rate: 53 P: 19 MA: 133 QRS: -20 QRSD: 96 T: 30 QT: 460 QTc: 432 Interpretive Statements SINUS BRADYCARDIA MODERATE VOLTAGE CRITERIA FOR LVH, CONSIDER NORMAL VARIANT [MEETS CRITERIA IN ONE OF: R(aVL), S(V1), R(V5), R(V5/V6)+S(V1)] POSSIBLE ANTERIOR MYOCARDIAL INFARCTION , OF INDETERMINATE AGE [30 ms Q WAVE IN V3/V4, OR R < 0.2 mV IN V4] No previous ECG available for comparison Electronically Signed On 10-09-2022 0:13:03 DIRECTOR FAMILY by Bryon Reaves M.D. [id number]
[2022-10-08 21:10] LABS: Troponin(5th) Baseline 12 ng/L (0-10)
[2022-10-08 21:20] LABS: Alanine Aminotransferase 25 U/L (0-33); Albumin Level 4.1 g/dL (3.5-5.2); Alkaline Phosphatase 112 U/L (35-105); Aspartate Amino Transferase 26 U/L (0-32); Blood Urea Nitrogen 21 mg/dL (8-23); Calcium 8.9 mg/dL (8.5-10.5); Carbon Dioxide 24 mmol/L (22-29); Chloride 106 mmol/L (98-107); Creatinine Clr Calc Pharmacy 38.7126; Globulin 2.6 g/dL (1.3-4.6); Glucose 125 mg/dL (65-115); Magnesium 1.8 mg/dL (1.7-2.3); NT Pro B Type Natriuretic Pept 113 pg/mL (0-450); Osmolality Calculated 294 mOsm/kg (285-295); Sodium 140 mmol/L (136-145); Total Bilirubin 0.2 mg/dL (0.15-1.2); Total Protein 6.7 g/dL (6.6-8.7)
[2022-10-08 21:28] LABS: Add Urine Microscopic? NO; Charge for UA Resulting for Rev
[2022-10-08 21:29] LABS: Influenza A by IFA negative (Negative); Influenza B by IFA negative (Negative); SARS Covid-2 Antigen negative (Negative)
[2022-10-08] MEDS: hyDRALAzine 20 mg/mL INJ 1 mL 10 MG IVP (21:36)
[2022-10-08 21:37] LABS: Urine Appearance Clear (CLEAR); Urine Color Colorless (Yellow); pH Urine 7 (5-7)
[2022-10-08 21:38] LABS: Bilirubin Urine Neg (Negative); Blood Urine Neg (Negative); Glucose Urine UA Norm (Normal); Ketones Urine Negative (Negative); Leukocyte Esterase Urine Negative (Negative); Nitrate Urine Negative (Negative); Protein Urine Neg (Negative); Urobilinogen Urine Norm (Negative)
[2022-10-08 21:59] LABS: Free T4 Free Thyroxine 1.11 ng/dL (0.82-1.77)
[2022-10-08 22:29] VITALS: BP 144/62; PULSE 69; RESP 18; O2SAT 95
--- NOTE | 2022-10-08 22:36 | ECG_ITS ---
[facility] Test Date: 2022-10-08 Pat Name: Odalys Arreaga Department: Room: Gender: Female Sheeter Helper: : 1940 Requested By: Valeriy Buckley Order Number: [id number] Teddy MD: Windy Gresham M.D. Measurements Intervals [place] Rate: 66 P: 58 NH: 172 QRS: -28 QRSD: 87 T: 53 QT: 415 QTc: 438 Interpretive Statements SINUS RHYTHM POSSIBLE ANTERIOR MYOCARDIAL INFARCTION , OF INDETERMINATE AGE [30 ms Q WAVE IN V3/V4, OR R < 0.2 mV IN V4] Compared to ECG 10/08/2022 21:03:44 Sinus bradycardia no longer present Myocardial infarct finding still present Electronically Signed On 10-10-2022 8:17:08 SR. PRICING ANALYST by Windy Gresham M.D. [id number]
[2022-10-08 23:07] LABS: Troponin 5 2HR 12.23 ng/L (0-10)
[2022-10-08 23:26] LABS: Troponin 5 2HR Delta 0.23 ABS# (0-10)
[2022-10-09 00:48] VITALS: BP 128/59; PULSE 78; RESP 20; O2SAT 95
== END 2022-10-09 00:25 | disposition home or self-care (01) ==
PROVIDERS: Emergency Provider Emergency Medicine; PCP Family Medicine
DX: R51.9 Headache, unspecified (principal); I10 Essential (primary) hypertension; R53.81 Other malaise; R53.83 Other fatigue; Z20.822 Contact with and (suspected) exposure to COVID-19
CPT/HCPCS: 36415; 70450; 71045; 80053; 81003; 83735; 83880; 84439; 84443; 84484; 85025; 87426; 87804; 93005; 96374; 99285; J0360

== ENCOUNTER → 2023-02-09 08:58 | Outpatient (BNVA) | payer MEDICARE, MEDICAID, SELFPAY | PROVIDERS: PCP Family Medicine; Visit Provider Internal Medicine Hematology & Oncology | DX: C50.811 Malignant neoplasm of overlapping sites of right female breast (principal); Z17.1 Estrogen receptor negative status [ER-]; Z90.11 Acquired absence of right breast and nipple; Z79.899 Other long term (current) drug therapy; Z92.21 Personal history of antineoplastic chemotherapy | CPT/HCPCS: 99214 ==

== ENCOUNTER 2023-02-09 08:59 | Oncology outpatient (recurring) (ONCR) | payer MEDICARE, MEDICAID, SELFPAY ==
--- NOTE | 2023-02-09 09:15 | PC.NURSE ---
lab drawn via RAC x1 attempt, pressure dressing applied.
[2023-02-09 09:20] LABS: Basophils # 0.1 10^3/uL (0.0-0.1); Basophils % 0.9 %; Eosinophils # 0.3 10^3/uL (0.0-0.8); Eosinophils % 3.3 %; Hematocrit 35.4 % (37.0-47.0); Hemoglobin 11.9 g/dL (11.5-15.3); Lymphocytes # 2.2 10^3/uL (0.8-4.8); Mean Corpuscular HGB Conc 33.6 g/dL (30.0-36.0); Mean Corpuscular Hemoglobin 30.4 pg (28.0-34.0); Mean Corpuscular Volume 90.5 fl (81-99); Mean Platelet Volume 9.2 fL (7.4-10.4); Monocytes # 0.7 10^3/uL (0.2-0.9); Monocytes % 7.7 %; Neutrophils # 5.64 10^3/uL (1.8-7.7); Neutrophils % 62.9 %; Nucleated Red Blood Cells % 0 %; Platelet Count 227 10^3/cmm (130-400); Red Blood Count 3.91 10^6/uL (4.1-5.3); Red Cell Distribution Width 13.1 % (12.1-15.1)
[2023-02-09 09:55] LABS: Alanine Aminotransferase 18 U/L (0-33); Albumin Level 4.1 g/dL (3.5-5.2); Alkaline Phosphatase 85 U/L (35-105); Anion Gap 12.2 (5-19); Aspartate Amino Transferase 19 U/L (0-32); Blood Urea Nitrogen 19 mg/dL (8-23); CA 15-3 7.1 U/mL (0-25); Calcium 8.8 mg/dL (8.5-10.5); Carbon Dioxide 24 mmol/L (22-29); Chloride 104 mmol/L (98-107); Globulin 2.6 g/dL (1.3-4.6); Glucose 151 mg/dL (65-115); Osmolality Calculated 287 mOsm/kg (285-295); Potassium 4.2 mmol/L (3.5-5.1); Sodium 136 mmol/L (136-145); Total Bilirubin 0.3 mg/dL (0.15-1.2); Total Protein 6.7 g/dL (6.6-8.7)
[2023-02-09 10:05] VITALS: BP 124/54; PULSE 58; RESP 18; TEMP 36.8; O2SAT 95
[2023-02-11 07:54] LABS: CA 27.29 <10 U/mL (<38)
== END 2023-02-27 23:59 | disposition home or self-care (01) ==
PROVIDERS: PCP Family Medicine; Visit Provider Internal Medicine Hematology & Oncology
DX: C50.911 Malignant neoplasm of unspecified site of right female breast (principal)
CPT/HCPCS: 36415; 80053; 85025; 86300; J1642

== ENCOUNTER 2023-04-17 14:06 | Outpatient (CLI) | payer MEDICARE, MEDICAID, SELFPAY ==
--- NOTE | 2023-04-17 14:22 | MM_ITS ---
WS: [id number] Left breast diagnostic 3D tomosynthesis digital mammogram, 04/17/2023 Clinical Data: HXCA;RT MST;6MFU Comparison: 12/29/2209/22/2022, 12/31/2021, 04/28/2019. Findings: There is scattered fibroglandular tissue. There are unchanged calcifications. There are calcification s directly posterior to the nipple and then calcifications in the medial aspect of the left breast. N o distinct masses are seen. There are lymph nodes present. There is an infusion port overlying the le ft pectoral muscle. Impression: 1. Several untrained calcifications in the left breast. 2. No distinct mass is identified. 3. Recommend return to annual left breast mammogram. MM/[place] [id number] BIRADS: 2-Benign FOLLOW UP: 1 Year Follow-up The CAD decoration checker was used.
== END 2023-04-17 14:07 | disposition home or self-care (01) ==
PROVIDERS: PCP Family Medicine; Visit Provider Physician Assistant
DX: Z85.3 Personal history of malignant neoplasm of breast (principal); R92.1 Mammographic calcification found on diagnostic imaging of breast
CPT/HCPCS: 77061; G0279

== ENCOUNTER 2023-05-28 13:40 | Oncology outpatient (recurring) (ONCR) | payer MEDICARE, MEDICAID, SELFPAY ==
[2023-05-28 14:50] VITALS: BP 143/60; PULSE 72; RESP 16; TEMP 36.7; O2SAT 96
== END 2023-05-30 23:59 | disposition home or self-care (01) ==
PROVIDERS: PCP Family Medicine; Visit Provider Internal Medicine Hematology & Oncology
DX: C50.911 Malignant neoplasm of unspecified site of right female breast (principal); Z95.828 Presence of other vascular implants and grafts; Z17.1 Estrogen receptor negative status [ER-]; Z79.899 Other long term (current) drug therapy; C77.3 Secondary and unspecified malignant neoplasm of axilla and upper limb lymph nodes
CPT/HCPCS: 99214; J1642

== ENCOUNTER → 2023-06-29 08:16 | Outpatient (BNVA) | payer MEDICARE, MEDICAID, SELFPAY | PROVIDERS: PCP Family Medicine; Referring Provider Internal Medicine Medical Oncology; Visit Provider Surgery | DX: Z95.828 Presence of other vascular implants and grafts (principal) | CPT/HCPCS: 99203 ==

== ENCOUNTER 2023-07-22 07:08 | Day surgery (SDC) | payer MEDICARE, MEDICAID, SELFPAY ==
[2023-07-22] VITALS (7 sets, daily range): BP systolic 86–150; BP diastolic 53–68; PULSE 60–76; RESP 15–17; TEMP 36.3–36.7; O2SAT 96–99; BMI 28.9
--- NOTE | 2023-07-22 06:57 | P.HPUD_ITS ---
Surgery/Procedure H&P Update DATE OF PROCEDURE: July 22, 2023 DATE H&P PERFORMED: 06/29/23 H&P UPDATE INFORMATION: I have reviewed H&P completed within last 30 days, I have examined patient prior to procedure, No changes to prior documentation and H&P is in [facility] [place] on date indicated PLANNED PROCEDURE: Operation Date: 07/22/23 08:40 Proposed Procedures p Portacath Removal [id number](Not Applicable) - Cezar Negron MD
[2023-07-22] MEDS: sodium chloride 0.9% 1,000 ML 30 ML IV (07:40)
--- NOTE | 2023-07-22 07:50 | ANES.PREANE2 ---
Pre-Anesthetic Assessment Height/Weight: Height 1.52 m Weight 67.132 kg Temp Pulse Resp BP Pulse Ox O2 Del Method 97.3 F L 60 16 150/64 97 Room Air 07/22/23 07:24 07/22/23 07:24 07/22/23 07:24 07/22/23 07:24 07/22/23 07:24 07/22/23 07:24 Operation Date: 07/22/23 08:40 Proposed Procedures p Portacath Removal [id number](Not Applicable) - Cezar Negron MD Familial anesthetic complications: none Was Beta Debbie taken within 24 hours: N/A Was Clonidine taken within 24 hours: N/A Last intake: Intake Last Liquid Date 07/21/23 Last Liquid Time 17:30 Last Solid Date 07/21/23 Last Solid Time 17:30 Social Tobacco and No alcohol Exam alert, oriented x 3 and regular rate & rhythm Airway Submandibular: within normal limits Cervical ROM: within normal limits Mallampati: Class II Dentition: chipped Pulmonary Chronic Obstructive Pulmonary Disease CV/HEM Hypertension Metabolic Hyperlipidemia Anesthetic Plan ASA status: 3 Anesthesia: MAC Medications/Allergies Home Medications Medication Instructions Recorded Confirmed Last Taken Type atorvastatin 20 mg tablet (Lipitor) 20 mg PO DAILY 01/04/20 07/22/23 07/21/23 History cholecalciferol (vitamin D3) 25 1,000 unit PO DAILY 01/04/20 07/22/23 07/21/23 History mcg (1,000 unit) tablet (Vitamin D3) lorazepam 1 mg tablet 1 mg PO DAILY 01/04/20 07/22/23 07/21/23 History multivitamin (Once Daily tablet) See Rx Instructions .Route .COMPLEX 01/04/20 07/22/23 07/21/23 History lisinopril 10 mg tablet 10 mg PO DAILY #30 tabs 10/08/22 07/22/23 07/21/23 Rx amlodipine 5 mg tablet 5 mg PO DAILY 07/21/23 07/22/23 07/21/23 History furosemide 20 mg tablet 20 mg PO DAILY 07/21/23 07/22/23 07/21/23 History meloxicam 7.5 mg tablet 7.5 mg PO DAILY 07/21/23 07/22/23 07/21/23 History Allergies Allergy/AdvReac Type Severity Reaction Status Date / Time metformin Allergy ALGY-Rash Verified 07/21/23 13:24 Penicillins Allergy ALGY-Rash Verified 07/21/23 13:24 Current Medications Generic Name Dose Route Start Last Admin Trade Name Hardy PRN Reason Stop Dose Admin Sodium Chloride 1,000 mls @ 30 mls/hr 07/22/23 07:15 07/22/23 07:40 Sodium Chloride 0.9% IV 07/23/23 07:14 30 mls/hr .Q24H FELI Administration PFSH Anesthesia Medical History Anemia Arthritis Chronic back pain Hypertension Port-A-Cath in place Positive TB test Surgical History Hx of appendectomy Hx of subtotal mastectomy of right breast Social History Smoking and tobacco/nicotine status: never used tobacco/nicotine Data Anesthesia Cardiac Studies: Echocardiogram Ultrasound 03/12/20
[2023-07-22] MEDS: vancomycin 1,000 MG in sodium chloride 0.9% 250 ML 250 MG IV (08:49)
[2023-07-22] MEDS: lidocaine-epi 1% 20 mL INJ INJECTION (09:07)
[2023-07-22] MEDS: BUPivacaine 0.25% INJ 10 mL INJECTION (09:08)
--- NOTE | 2023-07-22 09:27 | P.OP_ITS ---
Operative Report Date of procedure: July 22, 2023 Pre-op diagnosis: Presence Port-A-Cath Post-op diagnosis: Same Procedure done: Excision of Port-A-Cath Specimens removed/disposition: Port-A-Cath Surgeon: Cezar Negron MD Pattern Data Operator: L[facility] OR Staff Estimated blood loss: 2 Complications: None Findings: Left upper chest Port-A-Cath noted, excised with, no significant bleeding after excision. Brief History: 82-year-old female with history of breast cancer status postchemotherapy who presented to my clinic for excision of Port-A-Cath. After discussion of the risk and benefits as documented in the preop note we decided to proceed with excisional Port-A-Cath. Procedure: Patient was brought into the OR, placed in the supine position, Moderate sedation was given. The left upper chest was prepped and draped in the usual sterile fashion. Timeout was conducted. 20 cc of local anesthesia was infiltrated around the Port-A-Cath and on the skin at 3 cm incision was made at the site of the previous surgical incision, the incision was deepened to the subcutaneous tissue until the Port-A-Cath was identified, the capsule surrounding the Port-A-Cath was open with electrocautery, the Port-A-Cath was delivered through the wound and pulled out while holding pressure at the level of the subclavian vein. Hemostasis was verified, the wound was irrigated with saline. The wound was then closed in layers using #3-0 Vicryl for the subcutaneous tissue #4 Monocryl for the skin. Dermabond was applied. At the end of the procedure all counts were correct, the patient tolerated well the p rocedure was transferred to the PACU in stable condition.
--- NOTE | 2023-07-22 09:50 | ANE.PACU2 ---
Inpatient post-anesthesia follow up: Airway intact: Yes Vital signs: Temperature 98.0 F Pulse Rate 65 Respiratory Rate 17 Blood Pressure 132/68 Pulse Oximetry 98 Oxygen Delivery Me thod Room Air Oxygen Flow Rate 6 Fraction of Inspir ed Oxygen Hydration adequate: Yes Nausea and vomiting: No Pain level: 2 Mental status: Baseline
== END 2023-07-22 10:35 | disposition home or self-care (01) ==
PROVIDERS: PCP Family Medicine; Visit Provider Surgery
PROC: (CPT 36589; principal; 2023-07-22 08:30)
DX: Z45.2 Encounter for adjustment and management of vascular access device (principal); J44.9 Chronic obstructive pulmonary disease, unspecified; I10 Essential (primary) hypertension; E78.5 Hyperlipidemia, unspecified; Z85.3 Personal history of malignant neoplasm of breast; M19.90 Unspecified osteoarthritis, unspecified site
CPT/HCPCS: 36590; J2704; J3370; J3490; J7030; J7050

== ENCOUNTER → 2023-08-04 10:30 | Outpatient (BNVA) | payer MEDICARE, MEDICAID, SELFPAY | PROVIDERS: PCP Family Medicine; Visit Provider Surgery | DX: Z95.828 Presence of other vascular implants and grafts (principal) | CPT/HCPCS: 99212 ==

== ENCOUNTER 2023-11-26 13:48 | Oncology outpatient (recurring) (ONCR) | payer MEDICARE, MEDICAID, SELFPAY ==
[2023-11-26 14:03] LABS: Basophils # 0.1 10^3/uL (0.0-0.1); Basophils % 0.6 %; Eosinophils # 0.2 10^3/uL (0.0-0.8); Eosinophils % 2.3 %; Hematocrit 35.5 % (36-47); Lymphocytes % 28.8 %; Mean Corpuscular Hemoglobin 29.7 pg (27-33); Mean Corpuscular Volume 90.1 fl (85-98); Mean Platelet Volume 9.5 fL (7.4-10.4); Monocytes # 0.8 10^3/uL (0.2-0.9); Monocytes % 8.1 %; Neutrophils # 6.13 10^3/uL (1.8-7.7); Nucleated Red Blood Cells % 0 %; Platelet Count 234 10^3/cmm (157-399); Red Blood Count 3.94 10^6/uL (3.85-5.65); Red Cell Distribution Width 12.9 % (12.1-15.1); White Blood Count 10.23 10^3/uL (3.29-11.43)
[2023-11-26 14:22] LABS: Alanine Aminotransferase 18 U/L (0-33); Albumin Level 4.2 g/dL (3.5-5.2); Alkaline Phosphatase 96 U/L (35-105); Anion Gap 13.9 (5-19); Aspartate Amino Transferase 23 U/L (0-32); Blood Urea Nitrogen 27 mg/dL (8-23); Carbon Dioxide 22 mmol/L (22-29); Chloride 111 mmol/L (98-107); Globulin 2.8 g/dL (1.3-4.6); Glucose 122 mg/dL (65-115); Osmolality Calculated 300 mOsm/kg (285-295); Potassium 4.9 mmol/L (3.5-5.1); Sodium 142 mmol/L (136-145); Total Bilirubin 0.2 mg/dL (0.15-1.2)
== END 2023-11-29 23:59 | disposition home or self-care (01) ==
PROVIDERS: Internal Medicine Medical Oncology; PCP Family Medicine; Visit Provider Internal Medicine Medical Oncology
DX: C50.911 Malignant neoplasm of unspecified site of right female breast (principal); Z79.899 Other long term (current) drug therapy; Z95.828 Presence of other vascular implants and grafts
CPT/HCPCS: 36415; 80053; 85025; 99214

== ENCOUNTER 2024-04-27 10:43 | Oncology outpatient (recurring) (ONCR) | payer MEDICARE, MEDICAID, SELFPAY ==
--- NOTE | 2024-04-27 10:55 | MM_ITS ---
WS: [email or web address] VIEWS: MLO, CC, and ML views LEFT breast only 3D digital tomosynthesis is also included in this exam . Comparisons. 04/28/2019, 12/31/2021 and 09/22/2022 Findings: There was no sign of mass, architectural distortion or suspicious calcification in the LEFT breast. T here are stable appearing nodular densities and benign-appearing calcifications.. The LEFT breast is heterogeneously dense which may obscure small masses. MM/[place] [id number] Impression: BI-RADS: 2-Benign finding. FOLLOW-UP: 1 Year Follow-up This mammogram was also analyzed by the Computer Aided Detection System R2 Imag e Restaurant Crew Member.
== END 2024-04-30 23:59 | disposition home or self-care (01) ==
LOC: RAD 10:48 → ONCMED 04-29 08:34
PROVIDERS: PCP Family Medicine; Visit Provider Nurse Practitioner Family
DX: C50.911 Malignant neoplasm of unspecified site of right female breast (principal)
CPT/HCPCS: 77061; G0279

== ENCOUNTER 2024-05-31 13:02 | Oncology outpatient (recurring) (ONCR) | payer MEDICARE, MEDICAID, SELFPAY ==
[2024-05-31 13:41] LABS: Basophils # 0.1 10^3/uL (0.0-0.1); Basophils % 0.9 %; Eosinophils # 0.3 10^3/uL (0.0-0.8); Eosinophils % 3.9 %; Lymphocytes # 2.4 10^3/uL (0.8-4.8); Lymphocytes % 31.6 %; Mean Corpuscular HGB Conc 33.4 g/dL (30-55); Mean Corpuscular Hemoglobin 29.7 pg (27-33); Mean Corpuscular Volume 88.8 fl (85-98); Mean Platelet Volume 9.6 fL (7.4-10.4); Monocytes # 0.7 10^3/uL (0.2-0.9); Monocytes % 9.3 %; Neutrophils # 4.07 10^3/uL (1.8-7.7); Neutrophils % 54.2 %; Nucleated Red Blood Cells % 0 %; Platelet Count 247 10^3/cmm (157-399); Red Blood Count 3.94 10^6/uL (3.85-5.65); White Blood Count 7.52 10^3/uL (3.29-11.43)
[2024-05-31 13:51] LABS: Alanine Aminotransferase 13 U/L (0-33); Alkaline Phosphatase 98 U/L (35-105); Anion Gap 14.8 (5-19); Aspartate Amino Transferase 17 U/L (0-32); Blood Urea Nitrogen 19 mg/dL (8-23); Calcium 8.7 mg/dL (8.5-10.5); Carbon Dioxide 23 mmol/L (22-29); Chloride 108 mmol/L (98-107); Globulin 2.7 g/dL (1.3-4.6); Glucose 178 mg/dL (65-115); Osmolality Calculated 299 mOsm/kg (285-295); Potassium 4.8 mmol/L (3.5-5.1); Sodium 141 mmol/L (136-145); Total Bilirubin 0.3 mg/dL (0.15-1.2); Total Protein 6.7 g/dL (6.6-8.7)
== END 2024-06-30 23:59 | disposition home or self-care (01) ==
PROVIDERS: PCP Family Medicine; Visit Provider Nurse Practitioner Family
DX: Z08 Encounter for follow-up examination after completed treatment for malignant neoplasm; Z85.3 Personal history of malignant neoplasm of breast; Z90.11 Acquired absence of right breast and nipple; Z87.891 Personal history of nicotine dependence
CPT/HCPCS: 36415; 80053; 85025; 99214

== ENCOUNTER 2024-10-18 06:57 | Emergency (ER) | payer MEDICARE, MEDICAID, SELFPAY ==
[2024-10-18 07:00] VITALS: BP 167/43; PULSE 72; RESP 18; TEMP 36.8; O2SAT 93; BMI 25.4
--- NOTE | 2024-10-18 07:04 | XR_ITS ---
WS: [email or web address] Exam: XR knee RT 1-2V [id number] Date/Time of Exam: 10/18/2024 7:16 AM Reason For Exam: FALL, PAIN Comparison 04/16/2023. Moderately advanced tricompartmental degenerative change noted. Valgum deformity of the knee. No acute fracture. No joint effusion. XR/XR knee RT -2V [id number] IMPRESSION: 1. Moderately advanced tricompartmental DJD. No fracture. [address]gren-N[address] gra de 3.
--- NOTE | 2024-10-18 07:11 | W.ED.EXTPRO ---
HPI - Extremity Problem General: Chief complaint: Extremity Injury, Lower Stated complaint: KNEE PAIN Time Seen by Provider: 10/18/24 06:59 History of Present Illness: 84-year-old female presents emergency room complaining of right knee pain patient states she fell on the knee this morning she has chronic right knee pain and then fell and has some mild acute injury this morning. Patient states this morning she fell she felt like her right knee gave out and she went down she landed on that knee she was able to break her fall of bed she denies any other specific injury from the fallNot strike her head did not lose consciousness. Patient is wearing a elastic brace on her knee. She said she did not hurt anything else when she fell. No recent illness. Associated symptoms: Deny chest pain, fever(s) or rash Related Data Home Medications ?Medication ?Instructions ?Recorded ?Confirmed atorvastatin 20 mg tablet (Lipitor) 20 mg PO DAILY 01/04/20 10/18/24 cholecalciferol (vitamin D3) 25 1,000 unit PO DAILY 01/04/20 10/18/24 mcg (1,000 unit) tablet (Vitamin D3) multivitamin (Once Daily tablet) See Rx Instructions .Route .COMPLEX 01/04/20 10/18/24 amlodipine 5 mg tablet 5 mg PO DAILY 07/21/23 10/18/24 furosemide 20 mg tablet 20 mg PO DAILY 07/21/23 10/18/24 lisinopril 20 mg tablet 20 mg PO DAILY 10/18/24 10/18/24 Previous Rx's ?Medication ?Instructions ?Recorded diclofenac sodium 75 mg 75 mg PO Q12H PRN pain #20 tabs 10/18/24 tablet,delayed release Allergies Allergy/AdvReac Type Severity Reaction Status Date / Time metformin Allergy ALGY-Rash Verified 05/31/24 14:27 Penicillins Allergy ALGY-Rash Verified 05/31/24 14:27 Review of Systems Const: Denies: fever(s) or chills Card: Denies: chest pain Resp: Denies: dyspnea GI: Denies: abdominal pain : Denies: dysuria, urinary frequency or urinary urgency Musc: Reports: joint pain; Denies: neck pain or back pain Skin/Breast: Denies: rash PFSH ED PFSH: Medical History Port-A-Cath in place 07/22/23 Dr Negron Anemia Positive TB test Arthritis Chronic back pain Hypertension Port-A-Cath in place Surgical History Hx of subtotal mastectomy of right breast Hx of appendectomy Social History Smoking and tobacco/nicotine status: former use of tobacco/nicotine (quit 2003) Quit status (tobacco/nicotine): has quit using Year quit tobacco: 2003 Former quit date comment: smoked couple of years Physical Exam Const: GENERAL APPEARANCE: cooperative ORIENTATION/CONSCIOUSNESS: Yes awake HENMT: COMMON NORMALS: normocephalic, atraumatic and hearing grossly normal bilaterally HEAD & SCALP: normocephalic and atraumatic Resp: COMMON NORMALS: normal respiratory effort, No retractions, No use of accessory muscles and clear to auscultation bilaterally AUSCULTATION: clear to auscultation bilaterally Cardio: COMMON NORMALS: regular rate, regular rhythm and No murmurs present (Cardio) RATE: regular rate RHYTHM: regular rhythm Extremity: COMMON NORMALS: normal to inspection, capillary refill normal and no calf tenderness OTHER: Trace edema lower extremities bilaterally. Examination of the knee and his knee brace in place no joint effusion no deformity chronic arthritic changes noted externally. No ligamentous instability or laxity is noted Course Vital Signs: Vital signs: Vital Signs Temperature 98.2 F 10/18/24 07:00 Pulse Rate 72 10/18/24 07:00 Respiratory Rate 18 10/18/24 07:00 Blood Pressure 167/43 10/18/24 07:00 Pulse Oximetry 93 10/18/24 07:00 Oxygen Delivery Me thod Room Air 10/18/24 07:00 MDM - Extremity (Nontraumatic) Medical Decision Making No acute fracture on x-ray there is significant amount of arthritic changes. Reviewed findings with the patient. Will discharge patient home can continue to use the knee brace as needed for comfort follow-up with primary care or Ortho can use diclofenac or ice for pain Medical Records I reviewed the patient's medical records. Lab Data Radiology Impressions Knee X-Ray 10/18/24 07:04 IMPRESSION: 1. Moderately advanced tricompartmental DJD. No fracture. Kellgren-Naveen grade 3. All radiology interpretation(s) finalized by discharge Discharge Plan Discharge Patient Disposition: Home Clinical Impression: Knee pain, right Condition: Stable Prescriptions: New diclofenac sodium 75 mg tablet,delayed release (DR/EC) 75 mg PO Q12H PRN (Reason: pain) Qty: 20 0RF No Action multivitamin [Once Daily] Tablet See Rx Instructions .ROUTE .COMPLEX Rx Instructions: TAKE 1 DAILY atorvastatin [Lipitor] 20 mg tablet 20 mg PO DAILY cholecalciferol (vitamin D3) [Vitamin D3] 25 mcg (1,000 unit) Tablet 1,000 unit PO DAILY lisinopril 20 mg tablet 20 mg PO DAILY amlodipine 5 mg tablet 5 mg PO DAILY furosemide 20 mg tablet 20 mg PO DAILY Discharge Orders: Discharge ED (Routine); Ordered 10/18/24 Ordered By: Don Perez Referrals: Sid Wall MD [Primary Care Provider] - Discharge Diet: Usual diet Discharge Activity: Increase activity as tolerated Patient Instructions: Opioid Safety, Pain Management Activity Restrictions/Additional Instructions: Thank you for choosing [facility] for your healthcare needs today. It is very important that you follow up as instructed or that you return to the Emergency Department should you have concerns or if your condition changes or worsens in any way. You were seen in the emergency room for right knee pain x-ray did not show any acute fracture does show significant amount of arthritic changes. Use the anti-inflammatory prescribed as needed for pain follow-up with your primary care doctor. Print Language: Nigerien Coding Level of Care Code ED Social Services for Lauryn Clarke
== END 2024-10-18 09:15 | disposition home or self-care (01) ==
PROVIDERS: Emergency Provider Family Medicine; PCP Family Medicine
DX: M25.561 Pain in right knee (principal); Z87.891 Personal history of nicotine dependence
CPT/HCPCS: 73560; 99283